=== PATIENT | male | born 1990 | race Caucasian/White ===

== ENCOUNTER 2020-03-31 | Outpatient (REF) | payer OTHER, SELFPAY | END 2020-03-31 00:01 | disposition home or self-care (01) | LOC: HO.WFDLNP | PROVIDERS: Visit Provider Hospitalist | DX: Z20.822 Contact with and (suspected) exposure to COVID-19 (principal) | CPT/HCPCS: U0003 ==

== ENCOUNTER 2020-04-01 17:43 | Emergency (ER) | payer OTHER, SELFPAY ==
--- NOTE | 2020-04-01 18:28 | ED.GENADULT ---
HPI - General Adult General Chief complaint: General Medical Stated complaint: COVID SYMPTOMS Time Seen by Provider: 04/01/20 18:27 Source: patient Mode of arrival: ambulatory Limitations: no limitations History of Present Illness HPI narrative: 29 y/o male with recent COVID diagnosis presents to the ED with anxiety. He was seen at a walk in clinic yesterday with headache and concern for COVID. His VS and physical examination were normal per documentation. A COVID PCR test was sent and patient was counseled. He was also tested the day prior and that came back positive for COVID. He reports today he had an episode of anxiety with increased respirations, tingling in his hands, chest discomfort and feeling panicked. Upon arrival to the ER all symptoms have resolved. MD complaint: anxiety Onset (ago): hour(s) (3) Severity: moderate Pain Consistency: now resolved Relieving factors: rest Exacerbating factors: other (stress, thinking about COVID) Associated symptoms: fever/chills and headaches Treatments prior to arrival: none Related Data Previous Rx's Medication Instructions Recorded hydroxyzine HCl 25 mg PO Q6H PRN #10 tab 04/01/20 Allergies Allergy/AdvReac Type Severity Reaction Status Date / Time No Known Allergies Allergy Verified 03/31/20 13:17 Review of Systems Review of Systems: Constitutional: No Fever, No Chills ENT/Mouth: + sore throat, No Rhinorrhea Cardiovascular: No Chest Pain, No SOB, No Orthopnea, No Edema Respiratory: + Cough, No Sputum Gastrointestinal: No Nausea, No Vomiting, No Diarrhea, No abdominal Pain Musculoskeletal: No joint pain, + Myalgias Skin: No Skin Lesions, No rash Neuro: No Weakness, No Numbness, No Dizziness, + Headache Psych:+ Anxiety/Panic, No Depression PMFSH Past Medical History Attestation statement: The following information was validated with the patient. Social History Social History Advance Directives: No Advance Directives Information Provided: No Physical Exam Vital Signs: Vital Signs: Last Vital Signs Temp 98.8 F 04/01/20 18:43 Pulse 105 H 04/01/20 18:43 Resp 18 04/01/20 18:43 BP 154/91 H 04/01/20 18:43 Pulse Ox 99 04/01/20 18:43 Body Mass Index 39.1 Appearance: Alert. Oriented X3. No acute distress. Eyes: Pupils equal, round and reactive to light. ENT: Pharynx normal. Neck: Normal inspection. Neck supple. CVS: Normal heart rate and rhythm. Pulses normal. Respiratory: No respiratory distress. Breath sounds normal. Abdomen: Soft and nontender. +BS x4 Skin: Skin warm and dry. Normal skin color. Normal skin turgor. No rashes. Extremities: No lower extremity edema. Negative Josefina's sign Neuro: Oriented X 3. No motor deficit. No sensory deficit. Course Course Course Narrative: 29 y/o male with COVID presenting s/p anxiety attack. Symptoms improved. He is concerned it is going to happen again. He was counseled on the diagnosis and management of COVID-19 as well as complications and warning signs to prompt ER evaluation. Agreed to start low dose atarax as needed for anxiety and patient agrees to follow up with his PCP for anxiety. He appears well, mild tachycardia on triage noted which has resolved upon my examination, likely anxiety related. Stable for discharge. Critical Care Time Critical Care Time Critical Care Time: No Discharge Plan Discharge Clinical Impression: COVID-19, Anxiety reaction Patient Disposition: Home, Self-Care Instructions: Anxiety (ED), COVID-19 (Coronavirus Disease 2019) (ED) Additional Instructions: Your exam and oxygen levels were normal. Rest. Drink plenty of fluids. Take over the counter cold/flu medications as needed for your symptoms. Take Tylenol and/or Motrin as needed for fevers and body aches. Follow up with your doctor this week. If you shortness of breath worsens , if you develop difficulty breathing or any other concerning symptom come back to the ER for further evaluation. CDC Guidelines for home isolation: - Stay away from others - WEAR A MASK if you are sick AND STAY HOME - Cover your mouth and nose with a tissue when you cough or sneeze. Dispose of tissues in a lined trash can and wash your hands immediately with soap and water for at least 20 seconds. If soap and water are not available, clean hands with alcohol-based hand subsurface augmentee operator that contains at least 60% alcohol. - Clean your hands often with soap and water for at least 20 seconds - Avoid touching your eyes, nose and mouth with unwashed hands - Do not share dishes, drinking glasses, cups, eating utensils, towels, or bedding with other people in your home. After using these items, wash them thoroughly with soap and water or put in the restaurant service manager. - Clean high-touch surfaces in your isolation area ( sick room and bathroom) every day; let a caregiver clean and disinfect high-touch surfaces in other areas of the home. Clean the area or item with soap and water or another detergent if it is dirty. Then, use a household disinfectant. - Limit contact with pets and animals: If you must care for a pet, wash your hands before and after interacting with them) Prescriptions: New hydroxyzine HCl 25 mg tablet 25 mg PO Q6H PRN (Reason: anxiety) Qty: 10 RF: 0 Interventions: ED Discharge Assessment Last Done: 04/01/20 19:27 Discharge Date/Time: 04/01/20 19:27
[2020-04-01 18:43] VITALS: BP 154/91; PULSE 105; RESP 18; TEMP 37.1; O2SAT 99; BMI 39.1
== END 2020-04-01 19:27 | disposition home or self-care (01) ==
PROVIDERS: Emergency Provider Internal Medicine
DX: U07.1 COVID-19 (principal); F41.9 Anxiety disorder, unspecified
CPT/HCPCS: 99283

== ENCOUNTER 2020-05-19 09:19 | Outpatient (REF) | payer OTHER, SELFPAY ==
[2020-05-19 11:50] LABS: Alanine Aminotransferase 29 U/L (0-40); Albumin Level 4.4 g/dL (3.5-5.0); Alkaline Phosphatase 104 U/L (39-117); Anion Gap 13 (12-20); Aspartate Amino Transferase 26 U/L (5-37); Bilirubin Total 0.9 mg/dL (0.0-1.0); Blood Urea Nitrogen 10 mg/dL (9-16); Calcium 9.3 mg/dL (8.4-10.2); Carbon Dioxide 27 mmol/L (22-29); Chloride 105 mmol/L (96-108); Cholesterol 147 mg/dL; Estimated Glomerular Filt Rate > 60; Glucose Fasting 99 mg/dL (60-99); HDL Cholesterol 45 mg/dL; LDL Cholesterol Calculated 86 mg/dl; Potassium 4.6 mmol/L (3.3-5.1); Sodium 140 mmol/L (135-145); Total Protein 7.9 g/dL (6.5-8.0); Triglycerides 83 mg/dL
[2020-05-19 12:12] LABS: TSH reflex Free T4 1.95 uIU/mL (0.32-4.0)
== END 2020-05-19 09:20 | disposition home or self-care (01) ==
LOC: HO.WFDLDS 09:19
PROVIDERS: Visit Provider Family Medicine
DX: Z00.00 Encounter for general adult medical examination without abnormal findings (principal)
CPT/HCPCS: 36415; 80053; 80061; 84443

== ENCOUNTER 2020-07-14 09:45 | Outpatient (REF) | payer OTHER, SELFPAY ==
--- NOTE | ~2020-07-14 | XR_ITS ---
EXAMINATION: XR CHEST CLINICAL INFORMATION: Z00.00 - Encounter for general adult medical examination COMPARISON: None TECHNIQUE: 2 views of the chest were obtained. FINDINGS: The lungs are clear. There is no hyperinflation, airspace consolidation, or effusion. The heart is normal in size. The vascularity is normal. The hilar and mediastinal contours and bony structures are unremarkable. XR/XR chest 2V IMPRESSION: Normal study.
== END 2020-07-14 09:46 | disposition home or self-care (01) ==
LOC: HO.XRAY 09:45
PROVIDERS: PCP Family Medicine; Visit Provider Family Medicine
DX: Z00.00 Encounter for general adult medical examination without abnormal findings (principal)
CPT/HCPCS: 71046

== ENCOUNTER → 2020-09-15 14:00 | Outpatient (REF) | payer OTHER, SELFPAY ==
--- NOTE | 2020-09-15 14:04 | ECG_ITS ---
Hook-up date: 2020-09-15 14:17:00 Duration: 25:02:00 Test Indications: PALPITATIONS Medications: [id number] QRS complexes * Ventricular ectopics which represent % of total QRS comp. * Supraventricular ectopics which represent % of total QRS comp. * Paced QRS complexs which represent % of total QRS comp. VENTRICULAR ECTOPY * Isolated * Bigeminal Cycles * Couplets * Runs * Beats in Runs * Beats LONGEST at * BPM at :: -- * Beats FASTEST at * BPM at :: -- SUPRAVENTRICULAR ECTOPY * Isolated * Couplets * Runs * Beats in Runs * Beats LONGEST at * BPM at :: -- * Beats FASTEST at * BPM at :: -- HEART RATES 45 MIN at 01:25:43 2020-09-16 78 AVG 145 MAX at 17:31:20 2020-09-15 LONGEST RR 1.6080 secs at 04:48:28 2020-09-16 S-T LEVELS Channel 1 - 128 mm at 14:17:00 2020-09-15 - 128 mm at 14:17:00 2020-09-15 Channel 2 - 128 mm at 14:17:00 2020-09-15 - 128 mm at 14:17:00 2020-09-15 Channel 3 - 128 mm at 03:33:61 -- - 128 mm at 03:33:61 Underlying rhythm is sinus; Average ventricular rate 78/min; range 45-145/min; No significant ectopy, tachy or bradyarrhythmias; Palpitations in patient diary associated with sinus rhythm. Referred By: Matthew Casiano Overread By: HILTON MITCHELL
== END ==
LOC: HO.CARD 14:00
PROVIDERS: PCP Family Medicine; Visit Provider Family Medicine
DX: R00.2 Palpitations (principal)
CPT/HCPCS: 93225; 93226

== ENCOUNTER 2020-09-24 16:39 | Outpatient (REF) | payer OTHER, SELFPAY ==
[2020-09-24 17:47] LABS: MANUAL DIFF FLAG NO
[2020-09-24 17:50] LABS: Basophils Percent Auto 0.4 % (0-2); Eosinophils Percent Auto 0.2 % (0-4); Hematocrit 44.4 % (42-52); Hemoglobin 15.5 g/dl (14.0-18.0); Imm Gran Abs Auto 0.02 X10*3/uL (0.00-0.03); Imm Gran Pct Auto 0.2 % (0.0-0.4); Lymphocytes Absolute Auto 1.5 X10*3/uL (1.2-4.9); Lymphocytes Percent Auto 17.3 % (20-40); Mean Corpuscular HGB Conc 34.9 g/dl (31.0-36.0); Mean Corpuscular Hemoglobin 29.7 pg (27.0-33.0); Mean Corpuscular Volume 85.1 fL (80-98); Mean Platelet Volume 10.2 fL (9.4-12.4); Monocytes Absolute Auto 0.8 X10*3/uL (0.1-1.2); Monocytes Percent Auto 9.6 % (2-11); Neutrophils Absolute Auto 6.2 X10*3/uL (2.0-8.3); Neutrophils Percent Auto 72.3 % (45-73); Platelet Count 325 X10*3/uL (160-400); Red Blood Count 5.22 X10*6/uL (4.60-5.80); Red Cell Distribution Width 13.2 % (11.0-16.0); White Blood Count 8.6 X10*3/uL (4.8-10.8)
[2020-09-24 18:25] LABS: Alanine Aminotransferase 23 U/L (0-40); Albumin Level 4.5 g/dL (3.5-5.0); Alkaline Phosphatase 113 U/L (39-117); Anion Gap 15 (12-20); Aspartate Amino Transferase 24 U/L (5-37); Blood Urea Nitrogen 9 mg/dL (9-16); Calcium 9.5 mg/dL (8.4-10.2); Carbon Dioxide 22 mmol/L (22-29); Chloride 106 mmol/L (96-108); Estimated Glomerular Filt Rate > 60; Glucose Random 89 mg/dL (60-115); Potassium 4.1 mmol/L (3.3-5.1); Sodium 139 mmol/L (135-145); Total Protein 8.1 g/dL (6.5-8.0)
[2020-09-24 18:46] LABS: Thyroid Stimulating Hormone 0.79 uIU/mL (0.32-4.0)
[2020-09-27 08:43] LABS: Folate 17.2 ng/mL (> or = 4.0); Vitamin B12 435 pg/mL (200-900)
== END 2020-09-24 16:40 | disposition home or self-care (01) ==
LOC: HO.LAB 16:39
PROVIDERS: PCP Family Medicine; Visit Provider Family Medicine
DX: Z00.00 Encounter for general adult medical examination without abnormal findings (principal); F41.9 Anxiety disorder, unspecified; E53.8 Deficiency of other specified B group vitamins; R20.2 Paresthesia of skin; E03.9 Hypothyroidism, unspecified
CPT/HCPCS: 36415; 80053; 82607; 82746; 84443; 85025

== ENCOUNTER 2020-10-06 09:04 | Outpatient (REF) | payer OTHER, SELFPAY | END 2020-10-06 09:05 | disposition home or self-care (01) | LOC: HO.WFDLDS 09:04 | PROVIDERS: PCP Family Medicine; Visit Provider Internal Medicine | DX: Z20.822 Contact with and (suspected) exposure to COVID-19 (principal) | CPT/HCPCS: C9803; U0003; U0005 ==

== ENCOUNTER 2020-10-07 07:58 | Emergency (ER) | payer OTHER, SELFPAY ==
[2020-10-07 07:59] VITALS: BP 132/77; PULSE 68; RESP 18; TEMP 36.7; O2SAT 99; BMI 33.5
--- NOTE | 2020-10-07 08:47 | ED.GENADULT ---
HPI - General Adult General Chief complaint: General Medical Stated complaint: abd pain Time Seen by Provider: 10/07/20 08:39 Source: patient Mode of arrival: ambulatory Limitations: no limitations History of Present Illness HPI narrative: Patient comes emergency room requesting his blood results that his PCP did on September 24. Also, patient is concerned that he felt a lump on the left side of his abdomen. Patient states that for several weeks he has been feeling tired, states that when he sitting or lying down and starts walking his heart rate goes to approximately 110, then if he sits down, his heart rate drops back to normal. During these episodes, patient denies chest pain, shortness of breath, no dizziness. Related Data Previous Rx's Medication Instructions Recorded hydroxyzine HCl 25 mg tablet 25 mg PO DAILY PRN #30 tab 06/09/20 omeprazole 40 mg capsule,delayed 40 mg PO DAILY 30 Days #30 cap 09/22/20 release Allergies Allergy/AdvReac Type Severity Reaction Status Date / Time No Known Allergies Allergy Verified 09/24/20 15:26 Review of Systems Review of Systems: Constitutional : No Weight loss, No Fever, No Chills, No Night Sweats, No Fatigue, No Malaise ENT/Mouth : No Hearing loss, No Ear Pain, No Nasal Congestion, No Sinus Pain, No Hoarseness, No sore throat, No Rhinorrhea, No Swallowing Difficulty Eyes: No Eye Pain, No Swelling, No Redness, No Foreign Body, No Discharge, No Vision Changes Cardiovascular : No Chest Pain, No SOB, No Dyspnea on Exertion, No Orthopnea, No Edema, palpitations with sitting up and standing Respiratory : No Cough, No Sputum, No Wheezing, No Smoke Exposure, No Dyspnea Gastrointestinal : No Nausea, No Vomiting, No Diarrhea, No Constipation, No abdominal Pain, No Hematochezia, No Melena Genitourinary : no irregular bleeding, No Dysuria, No Urinary Frequency, No Hematuria, No Urinary Incontinence, No Urgency, No Flank Pain, No Urinary Flow Changes, No Hesitancy Musculoskeletal : No joint pain, No Myalgias, No Joint Swelling Skin : No Skin Lesions, No rash Neuro : No Weakness, No Numbness, No Paresthesias, No Loss of Consciousness, No Dizziness, No Headache Psych : No Anxiety/Panic, No Depression, No SI/HI/AH/VH, No Social Issues, Heme/Lymph: No Bruising, No Bleeding,No Lymphadenopathy Endocrine : No Polyuria, No Polydipsia, No Temperature Intolerance [facility] Past Medical History Medical History Anxiety Surgical History No significant past surgical history Family History Family History Mother HTN (hypertension) Father No problems noted. Social History Social History Housing: Apartment Alcohol intake: current Alcohol intake frequency: a few times a week Patient Tobacco Use Status: Never used Tobacco Advance Directives: No Advance Directives Information Provided: No Current occupational status: employed Physical Exam Vital Signs: Vital Signs: Last Vital Signs Temp 98.0 F 10/07/20 07:59 Pulse 68 10/07/20 07:59 Resp 18 10/07/20 07:59 BP 132/77 10/07/20 07:59 Pulse Ox 99 10/07/20 07:59 Body Mass Index 33.5 Appearance: Alert. Oriented X3. No acute distress. Eyes: Pupils equal, round and reactive to light. ENT: Pharynx normal. Neck: Normal inspection. Neck supple. No lymph nodes noted. No crepitus CVS: Normal heart rate and rhythm. Pulses normal. Normal S1 and S2 Respiratory: No respiratory distress. Breath sounds normal. No Wheezing. No rales Abdomen: Soft and nontender. No rigidity. No distention. good BS x4 Skin: Skin warm and dry. Normal skin color. Normal skin turgor. Extremities: No lower extremity edema. No Lacerations. No Rash Neuro: Oriented X 3. No motor deficit. No sensory deficit. Moving all extermities. No slurred speech. Course Course Course Narrative: At this time, patient is asymptomatic. I discussed with the patient that the heart rate increased that he notices when he stands up and sits are normal. Patient states that he does not feel any palpitations, he is only aware of it because he wears a heart monitor. I discussed the labs from September 24 with the patient, his TSH was normal, his other labs unremarkable. Orthostatic vitals were negative Blood work was offered to the patient, states that he is content with the results from September 24, declined further blood work. I also discussed the physical exam with the patient, the lumps that the patient palpated in his abdomen are ribs. Patient was tested for COVID yesterday, the results are pending. Patient declined to be retested Discharge Plan Discharge Clinical Impression: Feeling tired Patient Disposition: Home, Self-Care Instructions: Fatigue (ED) Additional Instructions: Please follow-up with your primary care physician tomorrow. If you have any worsening or new symptoms, please return to the emergency room or call 911 Prescriptions: No Action hydroxyzine HCl 25 mg tablet 25 mg PO DAILY PRN (Reason: for anxiety) Qty: 30 RF: 1 omeprazole 40 mg capsule,delayed release(DR/EC) 40 mg PO DAILY 30 Days Qty: 30 RF: 0
== END 2020-10-07 09:05 | disposition home or self-care (01) ==
PROVIDERS: Emergency Provider Emergency Medicine; PCP Family Medicine
DX: R53.83 Other fatigue (principal)
CPT/HCPCS: 99282

== ENCOUNTER 2020-11-10 13:44 | Outpatient (REF) | payer OTHER, SELFPAY | END 2020-11-10 13:45 | disposition home or self-care (01) | LOC: HO.LNP 13:44 | PROVIDERS: Visit Provider Family Medicine | DX: Z20.822 Contact with and (suspected) exposure to COVID-19 (principal) | CPT/HCPCS: U0003; U0005 ==

== ENCOUNTER → 2020-11-24 10:04 | Outpatient (BNVA) | payer OTHER, SELFPAY | PROVIDERS: PCP Family Medicine; Visit Provider Dietitian, Registered | DX: E66.9 Obesity, unspecified (principal); Z68.30 Body mass index [BMI] 30.0-30.9, adult | CPT/HCPCS: 97802 ==

== ENCOUNTER → 2021-02-02 10:33 | Outpatient (BNVA) | payer OTHER, SELFPAY | PROVIDERS: PCP Family Medicine; Visit Provider Dietitian, Registered | DX: E66.9 Obesity, unspecified (principal) | CPT/HCPCS: 97803 ==

== ENCOUNTER → 2021-04-05 13:54 | Outpatient (BNVA) | payer OTHER, SELFPAY | PROVIDERS: PCP Family Medicine; Referring Provider Family Medicine; Visit Provider Nurse Practitioner Family ==

== ENCOUNTER → 2021-05-04 12:59 | Outpatient (REF) | payer OTHER, SELFPAY | LOC: HO.SL 12:59 | PROVIDERS: Visit Provider Nurse Practitioner Family | DX: G47.19 Other hypersomnia (principal); G47.9 Sleep disorder, unspecified; R06.83 Snoring | CPT/HCPCS: 95806 ==

== ENCOUNTER 2021-06-08 11:40 | Outpatient (REF) | payer OTHER, SELFPAY ==
[2021-06-08 14:17] LABS: MANUAL DIFF FLAG NO
[2021-06-08 14:19] LABS: Basophils Percent Auto 0.5 % (0-2); Eosinophils Absolute Auto 0.1 X10*3/uL (0.0-0.4); Eosinophils Percent Auto 1.2 % (0-4); Hematocrit 44.9 % (42.0-52.0); Hemoglobin 15.2 g/dl (14.0-18.0); Imm Gran Abs Auto 0.03 X10*3/uL (0.00-0.03); Imm Gran Pct Auto 0.5 % (0.0-0.4); Lymphocytes Absolute Auto 1.9 X10*3/uL (1.2-4.9); Lymphocytes Percent Auto 30.9 % (20-40); Mean Corpuscular HGB Conc 33.9 g/dl (31.0-36.0); Mean Corpuscular Hemoglobin 29.6 pg (27.0-33.0); Mean Corpuscular Volume 87.5 fL (80.0-98.0); Mean Platelet Volume 9.6 fL (9.4-12.4); Monocytes Absolute Auto 0.6 X10*3/uL (0.1-1.2); Monocytes Percent Auto 10.4 % (2-11); Neutrophils Absolute Auto 3.4 x10*3/uL (2.0-8.3); Neutrophils Percent Auto 56.5 % (45-73); Platelet Count 360 X10*3/uL (160-400); Red Blood Count 5.13 X10*6/uL (4.60-5.80); Red Cell Distribution Width 13.4 % (11.0-16.0)
== END 2021-06-08 11:41 | disposition home or self-care (01) ==
LOC: HO.WFDLDS 11:40
PROVIDERS: Visit Provider Family Medicine
DX: Z00.00 Encounter for general adult medical examination without abnormal findings (principal)
CPT/HCPCS: 36415; 85025

== ENCOUNTER 2021-06-09 08:27 | Outpatient (REF) | payer OTHER, SELFPAY ==
[2021-06-09 13:57] LABS: Leukocytes Stool Qualitative NEGATIVE (NEGATIVE)
== END 2021-06-09 08:28 | disposition home or self-care (01) ==
LOC: HO.WFDLNP 08:27
PROVIDERS: Visit Provider Family Medicine
DX: R10.9 Unspecified abdominal pain (principal); K92.1 Melena
CPT/HCPCS: 87045; 87046; 89055

== ENCOUNTER → 2021-06-28 08:32 | Outpatient (BNVA) | payer OTHER, SELFPAY | PROVIDERS: PCP Family Medicine; Referring Provider Family Medicine; Visit Provider Physician Assistant | DX: Z13.89 Encounter for screening for other disorder (principal) ==

== ENCOUNTER → 2021-07-12 08:22 | Outpatient (BNVA) | payer OTHER, SELFPAY | PROVIDERS: PCP Family Medicine; Visit Provider Nurse Practitioner Family | DX: Z13.89 Encounter for screening for other disorder (principal) ==

== ENCOUNTER 2021-07-27 13:56 | Outpatient (REF) | payer OTHER, SELFPAY ==
--- NOTE | ~2021-07-27 | US_ITS ---
EXAMINATION: US SOFT TISSUE NECK CLINICAL INFORMATION: Localized swelling, mass and lump, left neck. COMPARISON: None TECHNIQUE: Ultrasound of the neck soft tissues is performed with high- frequency castrejon-scale imaging and color Doppler. FINDINGS: In the palpable area as indicated by patient, within zone VB, there is a 1.1 x 0.4 x 1.1 cm normal-appearing lymph node without cortical thickening or lobulation. Multiple other small lymph nodes were evident in zone III. No suspicious cystic or solid mass appreciated. US/US soft tiss head and/or neck IMPRESSION: Region of palpable abnormality about the left neck corresponds to a normal-appearing lymph node within segment VB.
== END 2021-07-27 13:57 | disposition home or self-care (01) ==
LOC: HO.HMGCX 13:56
PROVIDERS: Visit Provider Family Medicine
DX: R22.1 Localized swelling, mass and lump, neck (principal)
CPT/HCPCS: 76536

== ENCOUNTER 2021-08-24 08:38 | Outpatient (REF) | payer OTHER, SELFPAY ==
--- NOTE | ~2021-08-24 | XR_ITS ---
EXAMINATION: XR ABDOMEN KUB CLINICAL INDICATION: Abdominal pain. COMPARISON: None TECHNIQUE: AP view of the abdomen. FINDINGS: The bowel gas pattern is normal with no evidence of ileus or obstruction. No unusual soft tissue calcifications are noted. The bones are unremarkable. XR/XR KUB IMPRESSION: Unremarkable examination.
[2021-08-24 11:42] LABS: Alanine Aminotransferase 36 U/L (0-40); Albumin Level 4.4 g/dL (3.5-5.0); Alkaline Phosphatase 104 U/L (39-117); Anion Gap 15 (12-20); Aspartate Amino Transferase 28 U/L (5-37); Bilirubin Total 0.6 mg/dL (0.0-1.0); Blood Urea Nitrogen 12 mg/dL (9-16); Calcium 9.6 mg/dL (8.4-10.2); Carbon Dioxide 24 mmol/L (22-29); Chloride 106 mmol/L (96-108); Cholesterol 176 mg/dL; Estimated Glomerular Filt Rate > 60; Glucose Fasting 88 mg/dL (60-99); HDL Cholesterol 58 mg/dL; LDL Cholesterol Calculated 108 mg/dl; Potassium 4.5 mmol/L (3.3-5.1); Sodium 140 mmol/L (135-145); Total Protein 8.1 g/dL (6.5-8.0); Triglycerides 50 mg/dL
[2021-08-24 12:09] LABS: TSH reflex Free T4 1.93 uIU/mL (0.32-4.0)
== END 2021-08-24 08:39 | disposition home or self-care (01) ==
LOC: HO.LAB 08:38
PROVIDERS: PCP Family Medicine; Visit Provider Family Medicine
DX: Z00.00 Encounter for general adult medical examination without abnormal findings (principal); R10.9 Unspecified abdominal pain
CPT/HCPCS: 36415; 74018; 80053; 80061; 84443

== ENCOUNTER 2022-05-31 08:21 | Day surgery (SDC) | payer OTHER, SELFPAY ==
[2022-05-26 14:13] VITALS: BMI 36.6
[2022-05-31 08:41] VITALS: BMI 36.0
[2022-05-31 08:47] VITALS: BP 143/85; PULSE 113; RESP 16; TEMP 36.8; O2SAT 98
[2022-05-31] MEDS: Lactated Ringers 1,000 ML 80 ML IVCONT (08:53)
--- NOTE | 2022-05-31 09:05 | HO.ANESPROP2 ---
HPI - Anesthesia Eval Consult details Narrative: 31 yr old for colonoscopy due to abd pain PMFSH Active Problems Active Problems: All Active Problems (Updated 05/26/22 @ 14:12 by Brittney Rivera RN) Encounter for screening laboratory testing for COVID-19 virus in asymptomatic patient (Acute) COVID-19 (Acute) Anxiety (Acute) Laboratory examination ordered as part of a routine general medical examination (Acute) COVID-19 virus infection (Acute) Shortness of breath (Acute) Annual physical exam (Acute) Obese (Acute) Fatigue (Acute) Palpitations (Acute) Atypical chest pain (Acute) GERD (gastroesophageal reflux disease) (Acute) Paresthesias (Acute) Viral illness (Acute) Fatigue (Acute) Mild dehydration (Acute) Exposure to severe acute respiratory syndrome coronavirus 2 (SARS-CoV-2) (Acute) Throat irritation (Acute) Cervicalgia (Acute) Rib pain (Acute) Snoring (Acute) Back pain (Acute) Apnea (Acute) Sleep disorder, unspecified (Acute) Excessive daytime sleepiness (Acute) Abnormal movement (Acute) Abdominal pain (Acute) Blood in stool (Acute) IBS (irritable colon syndrome) (Acute) Mass of left side of neck (Acute) Change in stool caliber (Acute) Cancer phobia (Acute) Past Medical History Medical History (Updated 05/26/22 @ 14:12 by Brittney Rivera RN) Anxiety GERD (gastroesophageal reflux disease) History of COVID-19 IBS (irritable bowel syndrome) Sleep disorder, unspecified Family History Family History Mother HTN (hypertension) Father No problems noted. Family history of problems with anesthesia: No Surgical History Surgical History (Updated 05/31/22 @ 08:40 by Myriam Ward) H/O skin graft History of Problems with Anesthesia: No Social History Social History Housing: Apartment Alcohol intake: current Alcohol intake frequency: a few times a month Patient Tobacco Use Status: Never used Tobacco e-Cigarette/Vaping Use: Never Used Second Hand Smoke Exposure: No Use of substances other than those prescribed or required for medical reasons: No Are you DNR?: No Advance Directives: No Advance Directives Information Provided: Yes service: No Current occupational status: employed 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 Cognitive needs: No Hearing needs: No Vision needs: Yes (glasses) Meds Allergies Allergy/AdvReac Type Severity Reaction Status Date / Time No Known Allergies Allergy Verified 05/31/22 08:40 Active Medications: Current Medications Lactated Ringer's (Lr) 1,000 mls @ 80 mls/hr IVCONT .[id number] SARAH Last Admin: 05/31/22 08:53 Dose: 80 mls/hr Exam Exam Date and Time: May 31, 2022 0905 Height,Weight and Vital Signs: Height 5 ft 9 in Weight 110.677 kg Last Vital Signs Temp 98.3 F 05/31/22 08:47 Pulse 113 H 05/31/22 08:47 Resp 16 05/31/22 08:47 BP 143/85 H 05/31/22 08:47 Pulse Ox 98 05/31/22 08:47 O2 Del Method 05/31/22 08:47 Airway Mallampati Class: II TM Dist: >3cm Neck ROM: Full Heart: rrr, tachy due to anxiety Lungs: clear Assessment and Plan Assessment Anesthesia Assessment: Anesthesia Plan Discussed and Chart Reviewed Final Anesthetic Review Family History of Problems with Anesthesia: No History of Problems with Anesthesia: No NPO: Yes Final Preanesthetic Review: No Changes in Pt Med Stat, Meds/Allgs Chart Reviewed, Consent Obtained/Reviewed and Anes Risks/Benef Reviewed Patient Risk: Low Procedure Risk: Low Anesthetic Plan Anesthetic Plan: MAC: Disposition: Standard PACU
--- NOTE | 2022-05-31 09:13 | MHC.SHP ---
Pre-Procedural Eval Section A Date of Service: 05/31/22 Section B Chief Complaint: altered bowel habits Relevant Family History (Specify if Yes): No Relevant Social History: None Present Medications: see Short Stay Collaborative assessment Medical History: No relevant PMH History of Previous Operations: No relevant previous surgery Allergies: Allergies Allergy/AdvReac Type Severity Reaction Status Date / Time No Known Allergies Allergy Verified 05/31/22 08:40 Review of Systems Sugical H&P ROS: Negative: Constitution, Cardiovascular, Respiratory, Neurological, Psychiatric, Hem-Onc, Allergic/Immunologic, Gastrointestinal, Genitourinary, Musculoskeletal, Integumentary, Endocrine and Eyes/Ears/Nose/Throat Exam Surgical H&P Exam: Normal: HEENT, Normal: Heart, Normal: Lungs, Normal: Extremities, Normal: Abdomen, Normal: Skin and Normal: Neurological Plan Diagnosis/Plan: Unchanged I have reviewed the history and physical and performed a pertinent physical examination on my patient. No changes have occurred unless specified. Time Spent With Patient Time: Total time managing care of this patient today ____ minutes.
--- NOTE | 2022-05-31 09:28 | PC.NURSE ---
Patient consumed an 8oz banana milkshake yesterday morning at 0800. Dr. Mendoza made aware.
--- NOTE | 2022-05-31 09:51 | W.PM.OPN ---
Operative Note Operative Note Date of Service: 05/31/22 Narrative: . Operative Information Procedure Description: Colonoscopy Indication: altered bowel habit Anesthesia: MAC COLONOSCOPY Instrument: Olympus variable stiffness pediatric scope 190L Colonoscopy Monitoring: Vital signs and clinical assessment, continuous EKG monitoring, Pulse oximetry, Carbon Dioxide monitoring and blood pressure monitoring were done throughout the procedure. Colon withdrawal time was 10 minutes. Procedure: The patient was placed in the left lateral decubitis position and pre-procedure medications were administered. After a digital rectal examination of the ano-rectum, the video colonoscope was inserted into the rectum and advanced through the colon to the cecum/TI. The colonoscope was slowly withdrawn in a retrograde panoramic fashion and the colon mucosa was carefully examined including a retroflexed view of the rectum. Findings and interventions are described below. Procedure Difficulty: easy Findings: Terminal Ileum-normal Cecum:normal Ascending Colon: normal Transverse Colon -normal Descending Colon:normal Sigmoid Colon: normal Rectum: Retroflexion with small, slightly inflammed internal hemorrhoids, grade I Anorectum - normal Colon preparation: [place] Bowel Preparation Scale Right colon; 3 Transverse colon: 3 Left colon; 3 (0 = Unprepared colon segment with mucosa not seen due to solid stool that cannot be cleared. 1 = Portion of mucosa of the colon segment seen, but other areas of the colon segment not well seen due to staining, residual stool and/or opaque liquid. 2 = Minor amount of residual staining, small fragments of stool and/or opaque liquid, but mucosa of colon segment seen well. 3 = Entire mucosa of colon segment seen well with no residual staining, small fragments of stool or opaque liquid) Impression and Post Procedure Diagnosis: internal hemorrhoids Plan: High fiber diet leaflet Avoid straining at stool, epsom salts and sitz bath, anusol supps or cream Repeat Colonoscopy aged 45 or earlier if clinically indicated Above findings were reviewed with the patient and relevant handouts were provided if indicated.
[2022-05-31 09:57] VITALS: BP 121/60; PULSE 105; RESP 20; TEMP 37; O2SAT 98
[2022-05-31 10:12] VITALS: BP 137/80; PULSE 104; RESP 18; TEMP 36.8; O2SAT 96
== END 2022-05-31 10:45 | disposition home or self-care (01) ==
PROVIDERS: PCP Family Medicine; Visit Provider Internal Medicine Gastroenterology
PROC: 0DJD8ZZ Inspection of Lower Intestinal Tract, Via Natural or Artificial Opening Endoscopic (ICD-10-PCS; CPT 45378; principal; 2022-05-31 10:00)
DX: R19.4 Change in bowel habit (principal); K64.0 First degree hemorrhoids; K58.9 Irritable bowel syndrome, unspecified; K21.9 Gastro-esophageal reflux disease without esophagitis; F40.298 Other specified phobia; G47.9 Sleep disorder, unspecified; Z86.16 Personal history of COVID-19
CPT/HCPCS: 45378

== ENCOUNTER → 2022-06-21 09:08 | Outpatient (BNVA) | payer OTHER, SELFPAY | PROVIDERS: PCP Family Medicine; Visit Provider Physician Assistant | DX: Z13.89 Encounter for screening for other disorder (principal) ==

== ENCOUNTER 2024-05-14 11:54 | Outpatient (AMB) | payer OTHER, SELFPAY ==
[2024-05-14 11:57] VITALS: BP 140/80; PULSE 97; TEMP 37.1; O2SAT 99
--- NOTE | 2024-05-14 11:57 | MHC.OFFWIV ---
Intake Vital Signs 05/14/24 11:57 Weight 257 lb BP 140/80 H Blood Pressure Location Rt brachial Position Sitting Pulse 97 Pulse Source Pulse Oximeter Temp 98.7 F Temp Source Oral Pulse Oximetry (%) 99 Oxygen Delivery Method Room Air Intake Visit Reasons: EP high BP, frequent urination, cold feet Intake Note: Patient here for frequent urination, feet always cold and irritation which started a couple of days ago. Patient Tobacco Use Status: Never used Tobacco Allergies No Known Allergies Allergy (Verified 05/14/24 12:02) Do you need a note to return to daycare/school/sports/work: No HPI HPI Comments History of Present Illness Details History of Present Illness - The patient is a 33-year-old male presenting with concerns about frequent urination, elevated blood pressure, and weird head sensations. - Describes a four-day history of a foggy sensation in the head with concurrent right eye twitching. - Blood pressure recordings at home indicated elevated levels with fluctuations, highest noted at 172/140 mmHg. - Reports increased urination two days ago, primarily post-water consumption; symptoms briefly resolved with electrolyte intake. - Active anxiety regarding potential dehydration, hydration intake typically low. - Occasional visual alteration events, specifically noted left-eye darkening episodes lasting seconds x 1 episode. - Normal fasting blood glucose readings acquired at home on device he purchased. - denies unintentional weight loss - Emotional distress with irritability and concentration difficulties coinciding with head sensation episodes. Also admits to difficulty relaxing when he gets home at the end of the day. He tells me he used to be able to play video games but he is not even interested in doing not right now. - Prior history of stress-induced symptoms managed successfully previously through medication; not currently on treatment. - Does not have a therapist but is open to one - Physical Exam General: Cooperative, healthy appearing, comfortable, no acute distress and well developed Orientation: Patient oriented x3 Limitations: No limitations Head: Normal to inspection Ears: Hearing grossly normal bilaterally Nose: Normal external nose present Face and sinus: Normal facial exam Eyes: Right eye twitching noted; transient darkening of vision in the left eye reported Neck: Normal visual inspection and Yes full ROM Respiratory: Normal respiratory effort and able to speak in complete sentences. Skin: No rashes or lesions noted; cold feet reported Neuro: Patient oriented x3 Extremities: Normal to inspection [facility] Medical History Anxiety GERD (gastroesophageal reflux disease) History of COVID-19 IBS (irritable bowel syndrome) Sleep disorder, unspecified Surgical History H/O skin graft Hx of colonoscopy Family History Mother HTN (hypertension) Father No problems noted. 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 Cognitive needs: No Hearing needs: No Vision needs: Yes (glasses) Review of Systems Const All systems reviewed & are unremarkable except as noted in HPI and below Physical Exam Vital Signs: Last Vital Signs Temp 98.7 F 05/14/24 11:57 Pulse 115 H 05/14/24 11:57 BP 140/80 H 05/14/24 11:57 Pulse Ox 97 05/14/24 11:57 Oxygen Delivery Method Room Air 05/14/24 11:57 Assessment & Plan Assessment & Plan (1) Anxiety about health: Code(s): R45.89 - Other symptoms and signs involving emotional state Plan: A tentative plan encompasses evaluating his understanding of stress as an anxiety-related factor, complementing his next scheduled consultations. Suggestions of therapist consultations, as outlined by patient insurance compatibilities, would provide interim support. (2) Elevated BP without diagnosis of hypertension: Code(s): R03.0 - Elevated blood-pressure reading, without diagnosis of hypertension Plan: The patient presents with symptoms indicative of anxiety and elevated blood pressure, which were consistent with past experiences and managed by self-reported lifestyle changes. Blood sugar levels were normal; however, procedural re-evaluation ensures accurate operation of the glucometer. High blood pressure measurements and associated symptoms align with anxiety and hydration inadequacies. Suggested lifestyle modifications, specifically increased fluid intake, reduce salt intake and support for stress management, potentially help alleviate symptoms. Elizabeth Price (CHW) sit with pt to give him resources for therapist and stress mgmt. Pt has appt with his PCP on 07/02, I told him to keep logging BP's twice daily (AM and PM) and bring to his appt. I messaged the chief procurement officer to see if he can be seen sooner but he can only come in on a Sunday. Continued monitoring and impending A1c tests manage potential diabetic concerns, reinforced by consistent urine analysis readings. Patient was informed and verbally consented to the use of an ambient scribe for clinic note documentation during this visit. Coding Level of Care Code Est Pt Level 4 (70705) Diagnoses Anxiety about health R45.89 Elevated BP without diagnosis of hypertension R03.0
--- OUTSIDE RECORDS SUMMARY | 2024-05-14 12:29 | XMS_ITS | Clinical Summary ---
Author Organization [facility] ity Address [address] [place] [address] Care Team Providers Care Test Puller Name Role Phone Unavailable Primary Care Provider Unavailabl e Social History Tobacco Use Types Packs/Day Years Used Date Smoking Tobacco: Never Assessed Sex and Gender Information Value Date Recorded Sex Assigned at Not on file Legal Sex Male 11:40 AM EDT Gender Identity Not on file Sexual Orientation Not on file Plan of Treatment Health Maintenance Due Date Last Done Comments DTaP,Tdap,and Td Vaccines (1 - Tdap) 06/08/2011 Hepatitis B Vaccines (1 of 3 - 19+ 3-dose series) 06/08/2011 COVID-19 Vaccine (2023-2 5 season) 2023 Influenza Vaccine (#1) 2023 Depression Screening 01/02/2024 HIV Screening 01/02/2024 Hepatitis C Screening 01/02/2024 Social Influencers of Health Screening 01/02/2024 HIB Vaccines Aged Out No longer eligi ble based on patient's age to complete this topic HPV Vaccines Aged Out No longer eligi ble based on patient's age to complete this topic Hepatitis A Vaccines Aged Out No long er eligible based on patient's age to complete this topic IPV Vaccines Aged Out No longer eligi ble based on patient's age to complete this topic MMR Vaccines Aged Out No longer eligi ble based on patient's age to complete this topic Meningococcal ACWY Vaccine Aged Out N o longer eligible based on patient's age to complete this topic Meningococcal B Vacine Aged Out No lo nger eligible based on patient's age to complete this topic Pneumococcal Vaccine: Pediat rics (0 to 5 Years) and At-Risk Patients (6 to 64 Years) Aged Out No longer eligible b ased on patient's age to complete this topic RSV Immunization Patients Un crispin 20 months Aged Out No longer eligible b ased on patient's age to complete this topic Varicella Vaccines Aged Out No longer eligible based on patient's age to complete this topic
--- OUTSIDE RECORDS SUMMARY | 2024-05-14 12:29 | XMS_ITS | Clinical Summary ---
Author Organization [facility] Address [address] [place] [address] Care Team Providers Care Specification Writer Name Role Phone Unavailable Primary Care Provider Unavailabl e Allergies No known active allergies Medications Medication Sig Dispensed Refills Start Date End Date Status ibuprofen (MOTRIN) 800 mg tablet Take 1 tablet (800 mg total) by mouth 3 times daily (every 8 hours). 90 tablet 06/09/2019 Active lidocaine (LIDODERM) 5 % patch Place 1 patch on the skin daily. Apply patch and leave on for 12 hours then remove. Patch may remain on skin for 12 hours per day. 30 patch 06/09/2019 Active methocarbamol (ROBAXIN) 500 MG tablet Take 2 tablets (1,000 mg total) by mouth 4 times daily (every 6 hours) as needed for muscle spasms. 20 tablet 06/09/2019 Active acetaminophen (TYLENOL) 500 MG tablet Take 1 tablet (500 mg total) by mouth 4 times daily (every 6 hours) as needed for mild pain (pain). 20 tablet 06/09/2019 Active Social History Tobacco Use Types Packs/Day Years Used Date Smoking Tobacco: Never Assessed Sex and Gender Information Value Date Recorded Sex Assigned at Not on file Gender Identity Not on file Sexual Orientation Not on file Last Filed Vital Signs Vital Sign Reading Time Taken Comments Blood Pressure 143/79 06/09/2019 8:12 PM EDT Pulse 101 06/09/2019 8:12 PM EDT Temperature 36.5 ??C (97.7 ??F) 06/09/2019 8:12 PM ED T Respiratory Rate 18 06/09/2019 8:12 PM EDT Oxygen Saturation 98% 06/09/2019 8:12 PM EDT Inhaled Oxygen Concentration - - Weight - - Height - - Body Mass Index - - Plan of Treatment Health Maintenance Due Date Last Done Comments Hepatitis C Virus Screening 1992 HIV Screening 2005 DTaP/Tdap/Td Vaccines (1 - Tdap) 06/08/2011 Hepatitis B Vaccines (1 of 3 - 19+ 3-dose series) 06/08/2011 Influenza Vaccine 10/25/2023 COVID-19 Vaccine (1 - 2023-2 5 season) 2023 HPV Vaccines Aged Out No longer eligi ble based on patient's age to complete this topic Pneumococcal Vaccine: Pediat aydee (0-5 Years) and At-Risk Patients (6 to 49 Years) Aged Out No longer eligible b ased on patient's age to complete this topic
--- OUTSIDE RECORDS SUMMARY | 2024-05-14 12:29 | XMS_ITS | Clinical Summary ---
Author Organization [facility] Address [address] [place] [address] Care Team Providers Care Data Quality Consultant Name Role Phone Emeli Yang SARA Primary Care Provider [phone] Source Comments PLEASE NOTE, if this patient is a minor, it may be UNLAWFUL to discuss sensitive information that is contained in these records (such as FAMILY PLANNING, MENTAL HEALTH or SUBSTANCE ABUSE) with the minor patient's parent or other person without the patient's specific authorization.[facility] Allergies No known active allergies Medications No known medications Active Problems Problem Noted Date Diagnosed Date 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 Was [place] [facility] [place]. TB spot was neg. No Rx recommended. Immunizations Name Administration Dates Next Due PPD 12/24/2013 Family History Relation Name Status Comments Brother 25 Alive Father 52 Alive Mother 48 Alive Sister 18 Alive Social History Tobacco Use Types Packs/Day Years Used Date Smoking Tobacco: Never Alcohol Use Standard Drinks/Week Comments No 0 (1 standard drink = 0.6 oz pur e alcohol) occassionl Sex and Gender Information Value Date Recorded Sex Assigned at Not on file Legal Sex Male 11:36 AM PDT Gender Identity Not on file Sexual Orientation Not on file Last Filed Vital Signs Vital Sign Reading Time Taken Comments Blood Pressure 128/68 06/19/2014 2:12 PM EDT Pulse 82 06/19/2014 2:12 PM EDT Temperature 36.4 ??C (97.5 ??F) 06/19/2014 2:12 PM ED T Respiratory Rate 16 06/19/2014 2:12 PM EDT Oxygen Saturation - - Inhaled Oxygen Concentration - - Weight 97.1 kg (214 lb) 06/19/2014 2:12 PM EDT Height 172.7 cm (5' 8 ) 06/19/2014 2:12 PM EDT Body Mass Index 32.54 06/19/2014 2:12 PM EDT Plan of Treatment Not on file Insurance [employer] SAF[employer]Y NET SAFETY NET DENTAL Care Teams Data Quality Consultant Relationship Specialty Start Date End Date Emeli Yang NP [address] [place] [address] PCP - General Internal Medicine 06/19/14
== END 2024-05-14 13:01 | disposition home or self-care (01) ==
PROVIDERS: PCP Family Medicine; Visit Provider Physician Assistant
DX: R45.89 Other symptoms and signs involving emotional state (principal); R03.0 Elevated blood-pressure reading, without diagnosis of hypertension; Z13.9 Encounter for screening, unspecified

== ENCOUNTER → 2024-05-14 11:54 | Outpatient (BNVA) | payer OTHER, SELFPAY | PROVIDERS: PCP Family Medicine | DX: R35.0 Frequency of micturition (principal); R45.89 Other symptoms and signs involving emotional state; R03.0 Elevated blood-pressure reading, without diagnosis of hypertension | CPT/HCPCS: 81003; 82948 ==

== ENCOUNTER 2024-07-02 11:40 | Outpatient (AMB) | payer OTHER, SELFPAY ==
--- NOTE | 2024-07-02 11:50 | A.OFFPC_ITS ---
Vital Signs 07/02/24 11:52 Height 5 ft 9 in Weight 251 lb 4 oz BMI 37.1 BP 130/70 Blood Pressure Location Rt brachial Position Sitting Respiration 16 Pulse 86 Pulse Source Pulse Oximeter Temp 99.5 F Temp Source Oral Pulse Oximetry (%) 96 Oxygen Delivery Method Room Air Intake Visit Reasons: Diabetic Intake Note: patient was scheduled for a physical Automotive Parts Interpreter Required: No Allergies No Known Allergies Allergy (Verified 07/02/24 11:54) Medication List - Last Reconciled 07/02/24 by Matthew Casiano MD No Known Home Meds Tobacco use date assessed: 08/31/21 Dental Screening Dental Screen Date: 07/02/24 Did you have a dental visit in the last 12 months?: Yes Did you have a dental problem in the last 6 months where you did not have access to dental care?: No Was dental information given to patient?: No HPI Diabetic HPI Details 34 y/o male presents today for a CPE wit h f/u labs. Pt is concerned about his blood sugars today. A1c toady 07/02/24 is [facility] Medical History Sleep disorder, unspecified IBS (irritable bowel syndrome) GERD (gastroesophageal reflux disease) History of COVID-19 Anxiety Surgical History Hx of colonoscopy H/O skin graft Family History Mother HTN (hypertension) Father No problems noted. 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 1. Little interest or pleasure in doing things: not at all 2. Feeling down, depressed, or hopeless: not at all 3. Trouble falling or staying asleep, or sleeping too much: not at all 4. Feeling tired or having little energy: several days 5. Poor appetite or overeating: not at all 6. Feeling bad about yourself - or that you are a failure or have let yourself or your family down: not at all 7. Trouble concentrating on things, such as reading the newspaper or watching television: several days 8. Moving or speaking so slowly that other people could have noticed. Or the opposite - being so fidgety or restless that you have been moving around a lot more than usual: not at all 9. Thoughts that you would be better off or of hurting yourself in some way: not at all Total score: 2 Depression Screening Interpretation: Negative Depression Screening Done: Yes 43291 - PHQ-9 Billing: Yes Source: Developed by Drs. Luis Laura, Lynette Jade, Jake Germain and colleagues, with an educational kirit from [employer]. Thrive Questionnaire Date Thrive assessed: 07/02/24 I am a: Patient What is your living situation today?: I have a steady place to live Within the past 12 months, did the food you bought not last and you didn't have the money to get more?: Never true Within the past 12 months, did you worry whether your food would run out before you got money to buy more?: Never true Do you have trouble paying for medicines?: I choose not to answer this question Do you have trouble getting transportation to medical appointments?: No Do you have trouble paying your heating and electricity bill?: I choose not to answer this question Do you have trouble taking care of your child, family member or friend?: No Do you have trouble with day-to-day activities such as bathing, preparing meals, shopping, managing finances, etc.?: No Are you currently unemployed and looking for a job?: No Are you interested in more education?: No Please select the resources that you would like help with: None Currently or been in a relationship where the following occur: No concerns reported THRIVE Score: 0 AUDIT C Alcohol Use Questionnaire (AUDIT-C) 1. How often do you have a drink containing alcohol?: Monthly or less 2. How many drinks containing alcohol do you have on a typical day when you are drinking?: 3 or 4 3. How often do you have six or more drinks on one occasion?: Never Total Score: 2 NATHEN-7 AMB Questionnaire NATHEN-7 Date NATHEN - 7 assessed: 07/02/24 Feeling nervous, anxious, or on edge: 2 = More than half the days Not being able to stop or control worryin = Several days Worrying too much about different things: 1 = Several days Trouble relaxin = Several days Being so restless that it is hard to sit still: 1 = Several days Becoming easily annoyed or irritable: 1 = Several days Feeling afraid as if something awful might happen: 1 = Several days Total NATHEN-7 score (0-4 normal; 5-9 mild; 10-14 moderate; 15-21 severe): 8 Source: Developed by Drs. Luis Laura, Lynette Jade, Jake Germain and colleagues, with an educational kirit from [employer]. NATHEN-7 Assessment Billing NATHEN-7 Assessment Tool: NATHEN-7 Assessment 15434 Review of Systems Const Denies chills, Denies fatigue, Denies fever(s), Denies headache(s) and Denies weakness Eyes Denies change in vision ENT Denies dizziness, Denies headache(s), Denies hearing loss, Denies nasal congestion, Denies sinus pain, Denies sinus pressure and Denies sore throat Card Denies chest pain, Denies lightheadedness, Denies dyspnea and Denies other (palpitations) Resp Denies cough, Denies dyspnea and Denies wheezing GI Denies abdominal pain, Denies melena, Denies hematochezia, Denies change in bowel habits, Denies dyspepsia and Denies nausea Denies hematuria and Denies dysuria Musc Denies abnormal gait, Denies myalgias, Denies arthralgias, Denies numbness and Denies tingling Skin/Breast Denies rash, Denies unusual bruising and Denies wounds Neuro Denies abnormal gait, Denies dizziness, Denies headache(s), Denies memory loss, Denies numbness, Denies Sensory deficit (Neuro), Denies tingling and Denies weakness Psych Denies anxiety, Denies depression and Denies memory loss Endo Denies cold intolerance, Denies fatigue, Denies heat intolerance, Denies polydipsia and Denies polyuria Chandler/Lymph Denies easy bleeding and Denies easy bruising Aller/Immun Denies wheezing Physical exam (Primary Care) Vital Signs: Last Vital Signs Temp 99.5 F 07/02/24 11:52 Pulse 86 07/02/24 11:52 Resp 16 07/02/24 11:52 BP 130/70 07/02/24 11:52 Pulse Ox 96 07/02/24 11:52 Oxygen Delivery Method Room Air 07/02/24 11:52 BMI result Body Mass Index 37.1 Tobacco/Smoking Status: Tobacco use Status Tobacco use date assessed 08/31/21 07/02/24 11:51 Patient Tobacco Use Status Never used Tobacco 07/02/24 11:51 e-Cigarette/Vaping Use Never Used 07/02/24 11:51 PHQ-9: PHQ-9 Score PHQ-9: Total score 2 07/02/24 11:57 Depression Screening Interpretation: Negative Thrive Assessment: Date of Thrive Assessment Date Thrive assessed 07/02/24 07/02/24 11:55 Currently or been in a relationship where the following occur: No concerns reported Const General: no acute distress, well developed, alert and awake Nutritional Appearance: well nourished and obese Orientation/consciousness: patient oriented x3 HENMT Head: Yes normocephalic and Yes atraumatic Ears: hearing grossly normal bilaterally and TM's normal bilaterally General nose exam: Normal external nose present and Normal nares present Mouth: Normal oral and palatal mucosa present and moist mucous membranes Teeth and gingiva: dentition normal Throat: Yes posterior oropharynx normal Eyes General: appearance normal, both eyes and all related structures Pupils: Equal, round and reactive pupils present and Pupil accommodation reflex normal EOM: EOMs intact bilaterally Neck Neck: Yes normal visual inspection, Yes no lymphadenopathy and Yes trachea midline Thyroid: Thyroid normal Carotids: no bruits Lymphatic: no lymphadenopathy noted Chest Chest palpation & inspection: normal inspection of the chest Resp Effort & Inspection: normal respiratory effort Auscultation: clear to auscultation bilaterally Cardio Rate: regular rate Rhythm: regular rhythm Heart sounds: S1 normal heart sound present, S2 normal heart sound present, no gallops, no murmurs and no rubs Bruits: no abdominal aortic bruits and no carotid bruits GI Palpation (GI): No Abdominal aortic bruit present, Soft to palpation, nontender, No hepatosplenomegaly present and No Rebound tenderness present Auscultation: normal bowel sounds General: Yes no CVA tenderness Back/Spine/Pelvis Back: no CVA tenderness Cervical Spine: cervical ROM normal and No Cervical spine tenderness Thoracic/Lumbar Spine: thoraco-lumbar ROM normal, No pain with thoraco-lumbar ROM, No thoracic spinal tenderness and No lumbar spinal tenderness Skin Lesions: no lesions Rashes: no rashes Trauma: no lacerations or abrasions Wounds: no wounds Nails: normal Neuro General: patient oriented x3 Cranial nerves: Yes Equal, round and reactive pupils present Cognition (Neuro): normal cognition Gait exam (Neuro): Normal gait present Motor exam (neuro): 5/5 motor strength present throughout Sensory Exam: No Sensory deficit (Neuro) Deep tendon reflexes (DTR's): Right patellar reflex intensity grade: 2+ and Left patellar reflex intensity grade: 2+ Extrem General: Yes normal to inspection and No edema Psych Appearance: grossly normal Affect: normal affect Attitude: cooperative Thought process: Normal thought process present Coding Level of Care Code Est Pt Level 3 (02554) Est Pt Prev Care 18-39y(59942) Diagnoses Adult general medical exam Z00.00 Anxiety F41.9 Constipation K59.00 Additional Codes NATHEN-7 Assessment Billing - NATHEN-7 Assessment Tool: NATHEN-7 Assessment 92140 ([id number]) PHQ-9 - 18174 - PHQ-9 Billing: Yes ([id number]) Assessment & Plan Assessment & Plan (1) Adult general medical exam: Code(s): Z00.00 - Encounter for general adult medical examination without abnormal findings Category: Medical Plan: 34-year-old?male?presents?for?complete?physical?exam Encouraged?healthy?diet?with?active?lifestyle?and?exercise (2) Anxiety: Code(s): F41.9 - Anxiety disorder, unspecified Category: Medical Plan: History?of?anxiety Fairly?stable?today He?notes?heart?rate?gets?fast?when?he?is?dehydrated. Encouraged?increase?water?intake (3) Constipation: Code(s): K59.00 - Constipation, unspecified Category: Medical Plan: As?above,?patient?notes?that?he?had?been?drinking?much?water Advised?him?to?work?at?about?72?oz?of?water?per?day Later?meals Orders: Orders Comprehensive [place]. Panel Fast Today Z00.00 - Encounter for general adult medical examination without abnormal findings Complete Blood Count Auto Diff Today Z00.00 - Encounter for general adult medical examination without abnormal findings Microalbumin, Random (w Creat) Today I10 - Essential (primary) hypertension Lipid Panel Today Z00.00 - Encounter for general adult medical examination without abnormal findings TSH reflex Free T4 Today Z00.00 - Encounter for general adult medical examination without abnormal findings UA CC w/rflx Micro + Cult Today Z00.00 - Encounter for general adult medical examination without abnormal findings
[2024-07-02 11:52] VITALS: BP 130/70; PULSE 86; RESP 16; TEMP 37.5; O2SAT 96; BMI 37.1
--- OUTSIDE RECORDS SUMMARY | 2024-07-02 13:48 | XMS_ITS | Clinical Summary ---
Author Organization [facility] Address [address] [place] [address] Care Team Providers Care General Merchandise Manager Name Role Phone Emeli Yang SARA Primary Care Provider [phone] Source Comments PLEASE NOTE, if this patient [...] (10/03/2015): PPD+(20mm) in 12/2013. Was seen at [facility]. TB spot was neg. No Rx recommended. Immunizations Immunization Administration Dates Next Due PPD 12/24/2013 Family [...] SAFETY NET SAFETY NET DENTAL Care Teams General Merchandise Manager Relationship Specialty Start Date End Date Emeli Yang NP [address] [place] [address] PCP - General Internal Medicine 06/19/14
--- OUTSIDE RECORDS SUMMARY | 2024-07-02 13:48 | XMS_ITS | Clinical Summary ---
Author Organization [facility] Address [address] [place] [address] Care Team Providers Care Delivery Route Driver Name Role Phone Unavailable Primary Care Provider [...]
--- OUTSIDE RECORDS SUMMARY | 2024-07-02 13:48 | XMS_ITS | Clinical Summary ---
Author Organization [facility] ity Address [address] [place] [address] Care Team Providers Care Landscape Supervisor Name Role Phone Unavailable Primary Care Provider [...] age to complete this topic Meningococcal B Vaccine Aged Out No l onger eligible based on patient's age to complete [...]
== END 2024-07-02 12:10 | disposition home or self-care (01) ==
LOC: HO.HMCFM 11:41
PROVIDERS: PCP Family Medicine; Visit Provider Family Medicine
DX: Z00.00 Encounter for general adult medical examination without abnormal findings (principal)

== ENCOUNTER → 2024-07-02 11:40 | Outpatient (BNVA) | payer OTHER, SELFPAY | PROVIDERS: PCP Family Medicine; Visit Provider Family Medicine | DX: Z00.00 Encounter for general adult medical examination without abnormal findings (principal); F41.9 Anxiety disorder, unspecified; K59.00 Constipation, unspecified; Z13.1 Encounter for screening for diabetes mellitus | CPT/HCPCS: 83036; 96127 ==

== ENCOUNTER 2024-07-02 12:32 | Outpatient (REF) | payer OTHER, SELFPAY ==
--- OUTSIDE RECORDS SUMMARY | 2024-07-02 14:30 | XMS_ITS | Clinical Summary ---
Author Organization [facility] ity Address [address] [place] [address] Care Team Providers Care Electric Deicer Assembler Name Role Phone Unavailable Primary Care Provider [...]
--- OUTSIDE RECORDS SUMMARY | 2024-07-02 14:30 | XMS_ITS | Clinical Summary ---
Author Organization [facility] Address [address] [place] [address] Care Team Providers Care Public Health Aides Teacher Name Role Phone Emeli Yang SARA Primary Care Provider [phone] Source Comments PLEASE NOTE, if this patient [...] (10/03/2015): PPD+(20mm) in 12/2013. Was seen at [facility] TB clinic. TB spot was neg. No [...] SAFETY NET SAFETY NET DENTAL Care Teams Public Health Aides Teacher Relationship Specialty Start Date End Date Emeli Yang NP [address] [place] [address] PCP - General Internal Medicine 06/19/14
--- OUTSIDE RECORDS SUMMARY | 2024-07-02 14:30 | XMS_ITS | Clinical Summary ---
Author Organization [facility] Address [address] [place] [address] Care Team Providers Care Regional Recruiter Name Role Phone Unavailable Primary Care Provider [...]
[2024-07-02 14:57] LABS: MANUAL DIFF FLAG NO
[2024-07-02 15:01] LABS: Basophils Percent Auto 0.3 % (0-2); Eosinophils Percent Auto 0.3 % (0-4); Hematocrit 45.1 % (42.0-52.0); Hemoglobin 15.6 g/dl (14.0-18.0); Imm Gran Abs Auto 0.01 X10*3/uL (0.00-0.03); Imm Gran Pct Auto 0.2 % (0.0-0.4); Lymphocytes Absolute Auto 1.6 X10*3/uL (1.2-4.9); Lymphocytes Percent Auto 26.9 % (20-40); Mean Corpuscular HGB Conc 34.6 g/dl (31.0-36.0); Mean Corpuscular Hemoglobin 29.3 pg (27.0-33.0); Mean Corpuscular Volume 84.8 fL (80.0-98.0); Mean Platelet Volume 9.4 fL (9.4-12.4); Monocytes Absolute Auto 0.6 X10*3/uL (0.1-1.2); Monocytes Percent Auto 10.4 % (2-11); Neutrophils Absolute Auto 3.8 x10*3/uL (2.0-8.3); Neutrophils Percent Auto 61.9 % (45-73); Platelet Count 358 X10*3/uL (160-400); Red Blood Count 5.32 X10*6/uL (4.60-5.80); Red Cell Distribution Width 14.2 % (11.0-16.0); White Blood Count 6.1 X10*3/uL (4.8-10.8)
[2024-07-02 15:05] LABS: Appearance Urine Clear; Color Urine Yellow; Glucose Urine UA Negative (Negative); Leukocyte Esterase Urine Negative (Negative); Nitrite Urine Negative (Negative); PH 8.5 (5.0-9.0); Urine Blood Negative (Negative); Urine Ketones Negative (Negative); Urine Protein Negative (Neg-Trace)
[2024-07-02 15:22] LABS: Alanine Aminotransferase 37 U/L (0-40); Albumin Level 4.3 g/dL (3.5-5.0); Alkaline Phosphatase 122 U/L (39-117); Anion Gap 9 (12-20); Aspartate Amino Transferase 33 U/L (5-37); Blood Urea Nitrogen 5 mg/dL (9-16); Calcium 9.3 mg/dL (8.4-10.2); Carbon Dioxide 26 mmol/L (22-29); Chloride 109 mmol/L (96-108); Cholesterol 137 mg/dL (<200); Estimated Glomerular Filt Rate > 60; Glucose Fasting 91 mg/dL (60-99); HDL Cholesterol 45 mg/dL (>40); LDL Cholesterol Calculated 72 mg/dL (<100); Sodium 140 mmol/L (135-145); Total Protein 7.9 g/dL (6.5-8.0); Triglycerides 100 mg/dL (<150)
[2024-07-02 15:37] LABS: TSH reflex Free T4 1.02 uIU/mL (0.32-4.0)
[2024-07-02 15:46] LABS: Creatinine Urine 180.23 mg/dL; Microalbum/Creatinine Ratio Ur 3.8 ug/mg cr (<30)
== END 2024-07-02 12:33 | disposition home or self-care (01) ==
LOC: HO.WFDLDS 12:32
PROVIDERS: Visit Provider Family Medicine
DX: Z00.00 Encounter for general adult medical examination without abnormal findings (principal); I10 Essential (primary) hypertension
CPT/HCPCS: 36415; 80053; 80061; 81003; 82043; 82570; 84443; 85025

== ENCOUNTER 2024-07-24 08:27 | Emergency (ER) | payer OTHER, SELFPAY ==
--- NOTE | ~2024-07-24 | XR_ITS ---
EXAMINATION: XR LUMBOSACRAL SPINE CLINICAL INFORMATION: lower left back pain COMPARISON: None available. TECHNIQUE: Three views of the lumbosacral spine. FINDINGS: Minimal levoconvex scoliosis. The vertebral bodies and posterior elements are intact. The disc spaces are preserved and the vertebral alignment is normal. Facets are normally aligned. The paraspinal soft tissues are normal. XR/XR lumbar spine 2-3V IMPRESSION: Essentially normal lumbar spine radiographs. Electronically signed by: Sung Hodge MD 07/24/2024 11:01 AM EDT
[2024-07-24 08:29] VITALS: BP 150/85; PULSE 79; RESP 16; TEMP 36.9; O2SAT 100; BMI 36.8
[2024-07-24 08:46] VITALS: BP 137/85; PULSE 103; RESP 15; TEMP 36.7; O2SAT 99
--- OUTSIDE RECORDS SUMMARY | 2024-07-24 09:16 | XMS_ITS | Clinical Summary ---
Author Organization [facility] ity Address [address] [place] [address] Care Team Providers Care Supervisor Throwing Department Name Role Phone Unavailable Primary Care Provider [...] 06/08/2011 COVID-19 Vaccine (2023-2 5 season) 2023 Depression Screening 01/02/2024 HIV Screening 01/02/2024 Hepatitis C Screening 01/02/2024 Social Influencers of Health Screening 01/02/2024 Influenza Vaccine (Season Ended) 2024 HIB Vaccines Aged Out No longer eligi [...]
--- OUTSIDE RECORDS SUMMARY | 2024-07-24 09:16 | XMS_ITS | Clinical Summary ---
Author Organization [facility] Address [address] [place] [address] Care Team Providers Care Design Draftsman Name Role Phone Unavailable Primary Care Provider Unavailabl e Allergies No known active allergies Medications ibuprofen (MOTRIN) 800 mg tablet Take 1 [...] at Not on file Legal Sex Male 8:03 PM EDT Gender Identity Not on file Sexual [...] on patient's age to complete this topic Insurance [facility] [place] (AUTO/LIABILITY)
--- OUTSIDE RECORDS SUMMARY | 2024-07-24 09:16 | XMS_ITS | Clinical Summary ---
Author Organization [facility] Address [address] [place] [address] Care Team Providers Care Channel Worker Name Role Phone Emeli Yang SARA Primary Care Provider [phone] Source Comments PLEASE NOTE, if this patient [...] (10/03/2015): PPD+(20mm) in 12/2013. Was seen at [facility] TB clinic. TB spot was neg. No [...] SAFETY NET SAFETY NET DENTAL Care Teams Channel Worker Relationship Specialty Start Date End Date Emeli Yang NP [address] [place] [address] PCP - General Internal Medicine 06/19/14
--- NOTE | 2024-07-24 09:40 | ED_ITS ---
HPI - General Adult General Chief complaint: Skin/Abscess/Foreign Body Stated complaint: lump on back lower left side Time Seen by Provider: 07/24/24 09:15 Source: patient Mode of arrival: ambulatory Limitations: no limitations History of Present Illness ED Provider: JAZMÍN RUSSELL PA-C HPI narrative: 34 year old male with pmhx of GERD, IBS presents to the ED today for evaluation of lump to lower back x2 years. Patient reports an intermittent aching sensation that is worse with sitting. He denies any clear inciting injury or moment when the symptoms started but does report that he used to shadow box which might have caused him to strain his back. He reports that he can deal with the pain but wants to rule out anything serious. Denies hx of similar. Denies hx of IVDU. Denies hx of spinal surgery. Denies fever, chills, headache, vision changes, nausea or vomiting, flank pain, urinary symptoms, saddle anesthesia, bowel or bladder incontinence or retention, numbness/tingling/weakness of the lower extremities. Related Data Home Medications ?Medication ?Instructions ?Recorded ?Confirmed No Known Home Meds 07/02/24 07/30/24 Allergies Allergy/AdvReac Type Severity Reaction Status Date / Time No Known Allergies Allergy Verified 07/30/24 09:27 Review of Systems 2 Review of Systems: Yes all other systems are reviewed and are negative PMFSH Past Medical History Attestation statement: The following information was validated with the patient. Source: old records reviewed and nursing notes reviewed Medical History Sleep disorder, unspecified IBS (irritable bowel syndrome) GERD (gastroesophageal reflux disease) History of COVID-19 Anxiety Surgical History Hx of colonoscopy H/O skin graft Family History Family History Mother HTN (hypertension) Father No problems noted. 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 Afebrile. General: Well appearing, in no acute distress. Skin: Warm, dry, intact. No rashes or lesions. Head: Normocephalic, atraumatic. EENT: Hearing is intact b/l. Conjunctiva clear. Sclera is anicteric. Neck: Supple without LAD. Cardiac: Chest wall symmetric. RRR. Lungs: Normal respiratory effort without accessory muscle use. CTA bilaterally. Abdomen: Soft, non-tender, non-distended. No rebound tenderness or guarding. Positive BS x4. Back: No midline spinous or paraspinal tenderness. No step off deformity. No palpable mass to lower back. no overlying skin changes. Ext: Upper and lower extremities atraumatic, without tenderness, deformity, swelling or erythema. Full ROM throughout. Strength 5/5 throughout. Neuro: AOx3. Normal speech. Sensation intact to light touch. NV intact distally. Ambulating with steady gait. Course Course Course Narrative: CBC without leukocytosis or left shift. No anemia. H&H stable. Chemistry without acute electrolyte abnormality requiring intervention. No LETI. Liver function around baseline. xray lumbar spine unremarkable. given benign exam and unremarkable work up - advised to f/u with PCP. treated w/ toradol in ED. no complaints at present. Patient has remained stable throughout ED visit today. Discussed worrisome signs and symptoms and when to return to the ED. All questions answered at this time. Patient is agreeable with disposition and stable for discharge. Medical Decision Making Medical Decision Making [facility] Narrative: 34 year old male with pmhx of GERD, IBS presents to the ED today for evaluation of lump to lower back x2 years. Afebrile. Mildly tachycardic to 103 bpm. Hypertensive to 150/85. Patient in no acute distress, well-appearing. On exam, there is no midline spinous tenderness or tenderness to palpation. No step-off deformities. no palpable mass. no overlying skin changes. Sensation intact to lower extremities, 5/5 strength in bilateral lower extremities. ambulating with steady gait. Differential diagnosis consists of lumbago, disc herniation, lumbar fracture, muscle sprain/strain, pilonidal cyst, lipoma Unlikely cord compression, Guillain-Richmond, epidural abscess, cauda equina. Plan for labs, lumbar xrs Differential Diagnosis Differential Diagnoses: The differential diagnosis associated with the presentation includes as above Admission/Observation not indicated Lab Data MDM Lab Attestation statement: I reviewed the patient's lab results. as above 07/24/24 11:12 07/24/24 11:12 Labs: Lab Results 07/24/24 Range/Units 11:12 WBC 5.9 (4.8-10.8) X10*3/uL RBC 5.40 (4.60-5.80) X10*6/uL Hgb 15.9 (14.0-18.0) g/dl Hct 46.5 (42.0-52.0) % MCV 86.1 (80.0-98.0) fL MCH 29.4 (27.0-33.0) pg MCHC 34.2 (31.0-36.0) g/dl RDW 14.1 (11.0-16.0) % Plt Count 349 (160-400) X10*3/uL MPV 9.2 L (9.4-12.4) fL Immature Gran % (Auto) 0.3 (0.0-0.4) % Neut % (Auto) 72.2 (45-73) % Lymph % (Auto) 19.4 L (20-40) % Lumpkin % (Auto) 7.6 (2-11) % Eos % (Auto) 0.2 (0-4) % Baso % (Auto) 0.3 (0-2) % Lymph # (Auto) 1.2 (1.2-4.9) X10*3/uL Lumpkin # (Auto) 0.5 (0.1-1.2) X10*3/uL Eos # (Auto) 0.0 (0.0-0.4) X10*3/uL Baso # (Auto) 0.0 (0.0-0.2) X10*3/uL Abs Immat Gran (auto) 0.02 (0.00-0.03) X10*3/uL Absolute Neuts (auto) 4.3 (2.0-8.3) x10*3/uL Absolute Nucleated RBC 0.000 (0.0-0.012) X10*3/uL Nucleated RBC % (auto) 0.0 (0.0-0.2) /100WBC Sodium 142 (135-145) mmol/L Potassium 4.0 (3.3-5.1) mmol/L Chloride 107 (96-108) mmol/L Carbon Dioxide 26 (22-29) mmol/L Anion Gap 13 (12-20) BUN 6 L (9-16) mg/dL Creatinine 0.86 (0.5-1.4) mg/dL Estim Creat Clear Calc 152.7 Estimated GFR > 60 Random Glucose 98 (60-115) mg/dL Calcium 9.6 (8.4-10.2) mg/dL Magnesium 2.0 (1.6-2.6) mg/dL Total Bilirubin 0.9 (0.0-1.0) mg/dL AST 38 H (5-37) U/L ALT 33 (0-40) U/L Alkaline Phosphatase 124 H (39-117) U/L Total Protein 8.4 H (6.5-8.0) g/dL Albumin 4.5 (3.5-5.0) g/dL Independent Interpretation I performed an independent interpretation of an: Plain X-Ray Interpretation: xr lumbar spine without fracture Radiology Impression Discussion of test interpretation with radiology: I have reviewed the radiologist's reading. Radiologist Impression: Ordering Physician: Jazmín Russell Date of Service: 07/24/24 Procedure(s): XR lumbar spine 2-3V Accession Number(s): [id number] cc: Matthew Casiano MD; Jazmín Russell~ EXAMINATION: XR LUMBOSACRAL SPINE CLINICAL INFORMATION: lower left back pain COMPARISON: None available. TECHNIQUE: Three views of the lumbosacral spine. FINDINGS: Minimal levoconvex scoliosis. The vertebral bodies and posterior elements are intact. The disc spaces are preserved and the vertebral alignment is normal. Facets are normally aligned. The paraspinal soft tissues are normal. XR/XR lumbar spine 2-3V IMPRESSION: Essentially normal lumbar spine radiographs. Electronically signed by: Sung Hodge MD 07/24/2024 11:01 AM EDT External Record Review External record reviewed: Inpatient record Prescription Management I considered prescription management with: Pain Medication Social Determinants Patient?s care significantly limited by Social Determinants of Health including: Other Social Determinant of Health Critical Care Time Critical Care Time Critical Care Time: No Discharge Plan Discharge Clinical Impression: Back pain Patient Disposition: Home, Self-Care Instructions: Back Pain (ED), Heat Pack Application (ED) Additional Instructions: Your workup today is reassuring including blood work, urine and x-ray of your spine. I recommend you take Tylenol and Motrin as needed at home for pain or discomfort. Follow up with your outpatient providers. Return with new or worsening symptoms. In the case of an emergency call 911. Prescriptions: No Action No Known Home Meds Referrals: Matthew Casiano MD [Primary Care Provider] - Interventions: ED Discharge Assessment Last Done: 07/24/24 12:16 Discharge Date/Time: 07/24/24 12:19 Print Language: Lithuanian
[2024-07-24 11:18] LABS: MANUAL DIFF FLAG NO
[2024-07-24 11:21] LABS: Basophils Percent Auto 0.3 % (0-2); Eosinophils Percent Auto 0.2 % (0-4); Hematocrit 46.5 % (42.0-52.0); Hemoglobin 15.9 g/dl (14.0-18.0); Imm Gran Abs Auto 0.02 X10*3/uL (0.00-0.03); Imm Gran Pct Auto 0.3 % (0.0-0.4); Lymphocytes Absolute Auto 1.2 X10*3/uL (1.2-4.9); Lymphocytes Percent Auto 19.4 % (20-40); Mean Corpuscular HGB Conc 34.2 g/dl (31.0-36.0); Mean Corpuscular Hemoglobin 29.4 pg (27.0-33.0); Mean Corpuscular Volume 86.1 fL (80.0-98.0); Mean Platelet Volume 9.2 fL (9.4-12.4); Monocytes Absolute Auto 0.5 X10*3/uL (0.1-1.2); Monocytes Percent Auto 7.6 % (2-11); Neutrophils Absolute Auto 4.3 x10*3/uL (2.0-8.3); Neutrophils Percent Auto 72.2 % (45-73); Platelet Count 349 X10*3/uL (160-400); Red Cell Distribution Width 14.1 % (11.0-16.0); White Blood Count 5.9 X10*3/uL (4.8-10.8)
[2024-07-24 11:39] LABS: Alanine Aminotransferase 33 U/L (0-40); Albumin Level 4.5 g/dL (3.5-5.0); Alkaline Phosphatase 124 U/L (39-117); Anion Gap 13 (12-20); Aspartate Amino Transferase 38 U/L (5-37); Bilirubin Total 0.9 mg/dL (0.0-1.0); Blood Urea Nitrogen 6 mg/dL (9-16); Calcium 9.6 mg/dL (8.4-10.2); Carbon Dioxide 26 mmol/L (22-29); Chloride 107 mmol/L (96-108); Creatinine Clr Calc Pharmacy 152.7; Estimated Glomerular Filt Rate > 60; Glucose Random 98 mg/dL (60-115); Sodium 142 mmol/L (135-145); Total Protein 8.4 g/dL (6.5-8.0)
[2024-07-24 12:16] VITALS: BP 137/85; PULSE 103; RESP 15; TEMP 36.7; O2SAT 99
== END 2024-07-24 12:19 | disposition home or self-care (01) ==
PROVIDERS: Physician Assistant Medical; Emergency Provider Emergency Medicine; PCP Family Medicine
DX: M54.50 Low back pain, unspecified (principal); R00.0 Tachycardia, unspecified; I10 Essential (primary) hypertension; Z79.899 Other long term (current) drug therapy
CPT/HCPCS: 36415; 72100; 80053; 83735; 85025; 99283

== ENCOUNTER → 2024-07-24 09:39 | Outpatient (BNV) | payer OTHER, SELFPAY | PROVIDERS: Emergency Provider Emergency Medicine; PCP Family Medicine; Visit Provider Radiology Diagnostic Radiology | DX: M54.50 Low back pain, unspecified (principal) | CPT/HCPCS: 72100 ==

== ENCOUNTER 2024-07-30 09:28 | Outpatient (AMB) | payer OTHER, SELFPAY ==
--- NOTE | 2024-07-30 09:26 | A.OFFPC_ITS ---
Intake Visit Reasons: f/u CPE-labs via telemedicine Allergies No Known Allergies Allergy (Verified 07/30/24 09:27) Medication List - Last Reconciled 07/30/24 by Matthew Casiano MD No Known Home Meds Tobacco use date assessed: 08/31/21 Dental Screening Dental Screen Date: 07/02/24 HPI f/u CPE-labs via telemedicine 2 HPI Details 34 y/o male presents to f/u labs via tel emedicine. Labs drawn 07/24/24. Reviewed labs with pt. Elevated AST of 38. ALT 33. Triglycerides 100. TC 137. LDL 72. HDL 45. Pt notes he has a mass on his lower L back that he would like a work up on. HPI Comments History of Present Illness Details Documentation assistance for Matthew Casiano MD, was provided by Bob Childress,? Retail Office Associate on 07/30/2024 at 9:42 AM EST. I, Dr. Casiano, have read, observed, and verified documentation. ? PFSH Medical History Sleep disorder, unspecified IBS (irritable bowel syndrome) GERD (gastroesophageal reflux disease) History of COVID-19 Anxiety Surgical History Hx of colonoscopy H/O skin graft Family History Mother HTN (hypertension) Father No problems noted. 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 Cognitive needs: No Hearing needs: No Vision needs: Yes (glasses) Questionnaire Thrive Questionnaire Date Thrive assessed: 07/02/24 I am a: Patient What is your living situation today?: I have a steady place to live Within the past 12 months, did the food you bought not last and you didn't have the money to get more?: Never true Within the past 12 months, did you worry whether your food would run out before you got money to buy more?: Never true Do you have trouble paying for medicines?: I choose not to answer this question Do you have trouble getting transportation to medical appointments?: No Do you have trouble paying your heating and electricity bill?: I choose not to answer this question Do you have trouble taking care of your child, family member or friend?: No Do you have trouble with day-to-day activities such as bathing, preparing meals, shopping, managing finances, etc.?: No Are you currently unemployed and looking for a job?: No Are you interested in more education?: No Please select the resources that you would like help with: None Currently or been in a relationship where the following occur: No concerns reported THRIVE Score: 0 NATHEN-7 AMB Questionnaire NATHEN-7 Date NATHEN - 7 assessed: 07/02/24 Source: Developed by Drs. Luis Laura, Lynette Jade, Jake Germain and colleagues, with an educational kirit from [employer] Review of Systems Const Denies chills, Denies fatigue, Denies fever(s), Denies headache(s) and Denies weakness ENT Denies dizziness and Denies headache(s) Card Denies dyspnea Resp Denies cough, Denies dyspnea, Denies wheezing and Denies other (shortness of breath) Musc Denies numbness and Denies tingling Neuro Denies dizziness, Denies headache(s), Denies numbness, Denies tingling and Denies weakness Psych Denies anxiety and Denies depression Endo Denies fatigue Aller/Immun Denies wheezing Physical exam (Primary Care) Tobacco/Smoking Status: Tobacco use Status Tobacco use date assessed 08/31/21 07/30/24 09:27 Patient Tobacco Use Status Never used Tobacco 07/30/24 09:27 e-Cigarette/Vaping Use Never Used 07/30/24 09:27 Thrive Assessment: Date of Thrive Assessment Date Thrive assessed 07/02/24 07/30/24 09:27 Currently or been in a relationship where the following occur: No concerns reported Telehealth Telehealth Telehealth Platform: Telephone Location of provider rendering services: practice address Location of patient: address on file Patient Identification confirmed using: Name, : Yes Telehealth method: voice only Patient verbally consented to treatment: Yes Patient verbally consented to billing insurance company: Yes Patient informed of any privacy concerns related to visit: Yes Minutes spent on Phone/Video with Pt.: 8 Coding Level of Care Code Tele Est Pt Level 2 (06717) Diagnoses Elevated AST (SGOT) R74.01 Mass on back R22.2 Assessment & Plan Assessment & Plan (1) Elevated AST (SGOT): Code(s): R74.01 - Elevation of levels of liver transaminase levels Category: Medical Plan: Mildly?elevated?AST?when?patient?went?to?the?emergency?department?will?not?feeli ng?well. Was?Check?only?recently?before?this?and?was?within?range. Hydrate?well We?can?recheck?this?with?next?blood?draw (2) Mass on back: Code(s): R22.2 - Localized swelling, mass and lump, trunk Category: Medical Plan: Ongoing?concerns?by?patient?for?mass?on?back Had?been?to?the?ED?and?x-ray?did?not?show?any?problems. Will?check?an?ultrasound Orders: Orders US abdomen limited Today R22.2 - Localized swelling, mass and lump, trunk
--- OUTSIDE RECORDS SUMMARY | 2024-07-30 10:13 | XMS_ITS | Clinical Summary ---
Author Organization [facility] Address [address] [place] [address] Care Team Providers Care Metal Fabricating Shop Helper Name Role Phone Emeli Yang SARA Primary Care Provider [phone] Source Comments PLEASE NOTE, if this patient [...] (10/03/2015): PPD+(20mm) in 12/2013. Was seen at [facility] TB clinic. TB spot was neg. No [...] SAFETY NET SAFETY NET DENTAL Care Teams Metal Fabricating Shop Helper Relationship Specialty Start Date End Date Emeli Yang NP [address] [place] [address] PCP - General Internal Medicine 06/19/14
--- OUTSIDE RECORDS SUMMARY | 2024-07-30 10:13 | XMS_ITS | Clinical Summary ---
Author Organization [facility] ity Address [address] [place] [address] Care Team Providers Care Centrifugal Station Operator Name Role Phone Unavailable Primary Care Provider [...]
--- OUTSIDE RECORDS SUMMARY | 2024-07-30 10:13 | XMS_ITS | Clinical Summary ---
Author Organization [facility] Address [address] [place] [address] Care Team Providers Care Director Teen Post Name Role Phone Unavailable Primary Care Provider [...] - 19+ 3-dose series) 06/08/2011 COVID-19 Vaccine (1 - 2023-2 5 season) 2023 Influenza Vaccine 10/24/2024 HPV Vaccines Aged Out No longer eligi ble based on patient's age to complete this topic Pneumococcal Vaccine: Pediat aydee (0-5 Years) and At-Risk Patients (6 to 49 Years) Aged Out No longer eligible b ased on patient's age to complete this topic Insurance [facility] TPL (AUTO/LIABILITY)
== END 2024-07-30 17:05 | disposition home or self-care (01) ==
LOC: HO.HMCFM 09:28
PROVIDERS: PCP Family Medicine; Visit Provider Family Medicine
DX: R74.01 Elevation of levels of liver transaminase levels (principal); R22.2 Localized swelling, mass and lump, trunk

== ENCOUNTER → 2024-07-30 09:28 | Outpatient (BNVA) | payer OTHER, SELFPAY | PROVIDERS: PCP Family Medicine; Visit Provider Family Medicine | DX: Z13.89 Encounter for screening for other disorder (principal) ==

== ENCOUNTER 2024-09-10 10:01 | Outpatient (REF) | payer OTHER, SELFPAY ==
--- NOTE | ~2024-09-10 | US_ITS ---
EXAMINATION: US ABDOMEN LIMITED CLINICAL INFORMATION: Swelling, mass, lump on the trunk. COMPARISON: None available. TECHNIQUE: Real-time imaging of the right upper quadrant abdominal viscera. FINDINGS: Limited ultrasound imaging through left lower back/popliteal area reveals solid mass measuring 20.2 x 1.2 x 5.1 cm. It is isoechoic to fat without and extends deeper into the muscle suspicious .increased vascularity or internal herniation. No increased vascularity seen. The neck is approximately 1.4 cm and nonreducible. US/US abdomen limited IMPRESSION: Suspect intramuscular nonreducible hernia. Electronically signed by: Seven Bowden MD 09/12/2024 08:48 AM EDT
--- OUTSIDE RECORDS SUMMARY | 2024-09-10 11:14 | XMS_ITS | Clinical Summary ---
Author Organization [facility] Address [address] [place] [address] Care Team Providers Care Shipping Associate Name Role Phone Unavailable Primary Care Provider [...] 101 06/09/2019 8:12 PM EDT Temperature 36.5 C (97.7 F) 06/09/2019 8:12 PM EDT Respiratory Rate 18 06/09/2019 8:12 PM EDT [...] patient's age to complete this topic [place] [facility] [place]
== END 2024-09-10 10:02 | disposition home or self-care (01) ==
LOC: HO.HMGCX 10:01
PROVIDERS: PCP Family Medicine; Visit Provider Family Medicine
DX: R22.2 Localized swelling, mass and lump, trunk (principal)
CPT/HCPCS: 76705

== ENCOUNTER → 2024-09-10 10:03 | Outpatient (BNV) | payer OTHER, SELFPAY | PROVIDERS: PCP Family Medicine; Visit Provider Radiology Diagnostic Radiology | DX: R22.2 Localized swelling, mass and lump, trunk (principal) | CPT/HCPCS: 76705 ==

== ENCOUNTER 2024-11-05 09:06 | Outpatient (AMB) | payer OTHER, SELFPAY ==
--- NOTE | 2024-11-05 09:10 | MHC.OFFVIS ---
Vital Signs 11/05/24 09:16 Height 5 ft 9 in Weight 242 lb BMI 35.7 BP 151/85 H Blood Pressure Location Rt brachial Position Sitting Pulse 74 Intake Visit Reasons: swelling/mass/lump trunk Intake Note: Patient referred by pcp Dr. Casiano for assessment of non reducible hernia on back. Patient c/o: occasional discomfort on lower back. Abdomen US: 09-10-2024 Assistant Service Manager Required: No Accompanied by: Self / Same As Patient Allergies No Known Allergies Allergy (Verified 11/05/24 09:15) Medication List - Last Reconciled 11/05/24 by Kingsley Rodas MD No Known Home Meds HPI HPI swelling/mass/lump trunk: Details: 34-year-old male referred for a lump on his back. He says he feels to vague lumps on his lower back. He says that time this are not very obvious. He says he has had this for ?quite a while?. Denies any significant increased in size. He denies any skin changes. He denies any pain or tenderness. He does admit to having anxiety. [facility] Medical History Subcutaneous mass of back Sleep disorder, unspecified IBS (irritable bowel syndrome) GERD (gastroesophageal reflux disease) History of COVID-19 Anxiety Surgical History Hx of colonoscopy H/O skin graft Family History Mother HTN (hypertension) Father No problems noted. 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 Cognitive needs: No Hearing needs: No Vision needs: Yes (glasses) Review of Systems Const Denies chills and Denies fever(s) Card Denies chest pain, Denies dyspnea and Denies dyspnea on exertion Resp Denies cough, Denies dyspnea and Denies dyspnea on exertion GI Denies hematochezia and Denies change in bowel habits Denies hematuria and Denies difficulty urinating Musc Denies back pain and Denies limited range of motion Neuro Denies focal weakness and Denies convulsions Psych Denies depression and Denies mood swings Physical Exam Const Other: Obese General: comfortable and no acute distress Orientation/consciousness: patient oriented x3 Neck Neck: Yes no lymphadenopathy Resp Auscultation: clear to auscultation bilaterally Cardio Rhythm: regular rhythm GI Palpation (GI): Soft to palpation, nontender and no guarding Back/Spine/Pelvis Other: Vague, palpable mass on the left lower back lumbar area, nontender, no skin changes Neuro General: patient oriented x3 Assessment & Plan Assessment & Plan (1) Subcutaneous mass of back: Code(s): R22.2 - Localized swelling, mass and lump, trunk Category: Medical Plan He has a vague mass in the lower back as described above. His ultrasound shows that it may be fat containing hernia of the back. I told him that I am going to schedule him for a CAT scan of the abdomen to visualize this. I will see him again in the office thereafter to review the findings He seemed to understand the plan well. I assured him that this is not a malignant neoplasm which he was concerned of. Orders: Orders CT abdomen pelvis wo IV con Today R22.2 - Localized swelling, mass and lump, trunk Coding Level of Care Code New Pt Level 3 (78781) Diagnoses Subcutaneous mass of back R22.2
[2024-11-05 09:16] VITALS: BP 151/85; PULSE 74; BMI 35.7
--- OUTSIDE RECORDS SUMMARY | 2024-11-05 09:30 | XMS_ITS | Clinical Summary ---
Author Organization [facility] ity Address [address] [place] [address] Care Team Providers Care Sand Digger Name Role Phone Unavailable Primary Care Provider [...] 06/08/2011 COVID-19 Vaccine (2023-2 5 season) 2023 HIV Screening 01/02/2024 Hepatitis C Screening 01/02/2024 Social Influencers of Health Screening 01/02/2024 Depression Screening 03/26/2024 Influenza Vaccine (#1) 2024 HIB Vaccines Aged Out No longer [...] 5 Years) and At-Risk Patients (6 to 49 [...]
--- OUTSIDE RECORDS SUMMARY | 2024-11-05 09:30 | XMS_ITS | Clinical Summary ---
Author Organization [facility] Address [address] [place] [address] Care Team Providers Care Lip Cutter And Scorer Name Role Phone Emeli Yang SARA Primary Care Provider [phone] Source Comments PLEASE NOTE, if this patient [...] (10/03/2015): PPD+(20mm) in 12/2013. Was seen at [facility] TB clinic. TB spot was neg. No [...] 82 06/19/2014 2:12 PM EDT Temperature 36.4 C (97.5 F) 06/19/2014 2:12 PM EDT Respiratory Rate 16 06/19/2014 2:12 PM EDT Oxygen Saturation - - Inhaled Oxygen Concentration - - Weight 97.1 kg (214 lb) 06/19/2014 2:12 PM EDT Height 172.7 cm (5' 8 ) 06/19/2014 2:12 PM EDT Body Mass Index 32.54 06/19/2014 2:12 PM EDT Plan of Treatment Not on file Insurance [employer] S[employer] NET D[employer]AL Care Teams Lip Cutter And Scorer Relationship Specialty Start Date End Date Emeli Yang NP [address] [place] [address] PCP - General Internal Medicine 06/19/14
--- OUTSIDE RECORDS SUMMARY | 2024-11-05 09:30 | XMS_ITS | Clinical Summary ---
Author Organization [facility] Address [address] [place] [address] Care Team Providers Care Tax Collection Coordinator Name Role Phone Unavailable Primary Care Provider [...] of 3 - 19+ 3-dose series) 06/08/2011 HPV Vaccines (1 - 3-dose SCD M series) 06/08/2019 COVID-19 Vaccine (1 - 2023-2 5 season) 2023 Influenza Vaccine 10/24/2024 Pneumococcal Vaccine: Pediat aydee (0-5 Years) and At-Risk Patients (6 to 49 Years) Aged Out No longer eligible b ased on patient's age to complete this topic Insurance [facility] T[facility] (AUTO/LIABILITY)
== END 2024-11-05 09:30 | disposition home or self-care (01) ==
LOC: HO.HGS 09:07
PROVIDERS: PCP Family Medicine; Visit Provider Surgery
DX: R22.2 Localized swelling, mass and lump, trunk (principal)
CPT/HCPCS: 99203

== ENCOUNTER 2025-02-25 12:43 | Outpatient (AMB) | payer OTHER, SELFPAY ==
[2025-02-25 12:52] VITALS: BP 126/68; PULSE 102; TEMP 37.3; O2SAT 97; BMI 36.5
--- NOTE | 2025-02-25 12:52 | AM.OFFWIN_ITS ---
Intake Vital Signs 02/25/25 12:52 Height 5 ft 9 in Weight 112.037 kg BMI 36.5 BP 126/68 Blood Pressure Location Lt brachial Position Sitting Pulse 102 H Pulse Source Pulse Oximeter Temp 99.1 F Temp Source Oral Pulse Oximetry (%) 97 Oxygen Delivery Method Room Air Intake Visit Reasons: EP Left hip pain Intake Note: pt presents with LT hip pain and limping for 3 weeks- denies injury Patient Tobacco Use Status: Never used Tobacco Allergies No Known Allergies Allergy (Verified 02/25/25 12:57) Do you need a note to return to daycare/school/sports/work: No HPI HPI Comments History of Present Illness Details Chief Complaint: ?Pain in my right hip / glute that makes me limp.? History of Present Illness: The patient reports approximately four weeks of right posterior-lateral hip/gluteal pain atraumatic. Pain causes limping. Pain is worst while walking and when first rising after sitting; standing or sitting is generally comfortable. Localized near the femoral head/greater trochanter area. Pain is exacerbated by hip rotation and by actively lifting the right leg; one 24-hour period of complete symptom resolution occurred during the 4-week course, after which the pain returned. Denies trauma or falls. No associated numbness, tingling, or weakness. Able to bend forward and touch toes without pain; no significant back pain except occasional mild soreness ?once in a while.? No urinary or fecal incontinence. Denies visible bruising The presentation and exam are most consistent with an inflammatory process of the right hip region, likely trochanteric bursitis or gluteal tendonitis. No red-flag findings or history of trauma to suggest fracture; imaging deferred at this time. Problem #1: Right hip pain ? likely bursitis/tendonitis Assessment: Four-week history, localized over greater trochanter, pain with rotation/leg raise, normal strength, no trauma. Inflammatory etiology suspected. Plan: * Prednisone course: 5 days as prescribed. * Begin meloxicam 15 mg nightly for 2 weeks starting after completion of prednisone. * If no improvement or worsening symptoms, obtain right hip radiograph and re- evaluate. Differentials * Trochanteric bursitis: Most likely given pain localized to the lateral hip, exacerbated by movement, and absence of trauma. * Gluteal tendonitis: Also likely due to pain with active leg raise and hip rotation, and location near greater trochanter. * Hip osteoarthritis: Less likely in this age group, but considered due to chronicity and joint involvement. * Lumbar radiculopathy: Considered due to occasional mild back soreness, but absence of numbness, tingling, or weakness makes this less likely. * Hip labral tear: Possible given pain with rotation, though no history of trauma or mechanical symptoms. * Referred pain from lumbar spine: Mild back soreness reported, but pain is primarily localized to hip/gluteal region. * Avascular necrosis: Unlikely without risk factors or systemic symptoms, but considered due to persistent pain. * Stress fracture: Less likely given no trauma, normal strength, and absence of focal tenderness or swelling. * Infectious or inflammatory arthritis: Less likely due to lack of systemic symptoms (fever, malaise) and normal exam findings. [facility] Medical History Subcutaneous mass of back Sleep disorder, unspecified IBS (irritable bowel syndrome) GERD (gastroesophageal reflux disease) History of COVID-19 Anxiety Surgical History Hx of colonoscopy H/O skin graft Family History Mother HTN (hypertension) Father No problems noted. 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 * Neurologic: Denies numbness or tingling. * Integumentary: Denies bruising. * Genitourinary/GI: Continence intact. * All other systems not discussed. Const All systems reviewed & are unremarkable except as noted in HPI and below Physical Exam Exam Exam: * General: Ambulates with mild antalgic gait. * Musculoskeletal: Right hip ? full flexion/extension without pain; pain reproduced with internal/external rotation. Strength 5/5 bilaterally. No visible ecchymosis. Negative straight leg raise and fabers b/l. * Neurologic: Denies numbness or tingling. No saddle anesthesias. * VSS * CV/Resp: no cardiopulmonary distress Vital Signs: Last Vital Signs Temp 99.1 F 02/25/25 12:52 Pulse 102 H 02/25/25 12:52 BP 126/68 02/25/25 12:52 Pulse Ox 97 02/25/25 12:52 Oxygen Delivery Method Room Air 02/25/25 12:52 BMI result Body Mass Index 36.5 vss Assessment & Plan Assessment & Plan (1) Bursitis: Code(s): M71.9 - Bursopathy, unspecified Plan Take your medications as prescribed. If you were prescribed antibiotics today, it is important that you take your medication to their entirety, do not skip any doses, do not finish them early. Follow-up with your primary care provider this week. Return to the emergency department with new or worsening symptoms. In case of emergency call 911 Medications: New prednisone 40 mg (2 x 20 mg) PO DAILY 10 tabs 0RF 5 days meloxicam 15 mg PO DAILY 30 tabs 0RF pain Coding Level of Care Code Est Pt Level 3 (22070) Diagnoses Bursitis M71.9
--- OUTSIDE RECORDS SUMMARY | 2025-02-25 14:56 | XMS_ITS | Clinical Summary ---
Author Organization [facility] ity Address [address] [place] [address] Care Team Providers Care Plumbing Warehouse Helper Name Role Phone Unavailable Primary Care Provider [...] (1 - 3-dose SCD M series) 06/08/2019 HIV Screening 01/02/2024 Hepatitis C Screening 01/02/2024 Social Influencers of Health Screening 01/02/2024 Depression Screening 03/26/2024 COVID-19 Vaccine (1 - 2024-2 6 season) 2024 Influenza Vaccine (#1) 2024 RSV Immunization Adult Patie nts (1 - 1-dose 75+ series) 06/08/2067 HIB Vaccines Aged Out No longer eligi [...]
--- OUTSIDE RECORDS SUMMARY | 2025-02-25 14:56 | XMS_ITS | Clinical Summary ---
Author Organization [facility] Address [address] [place] [address] Care Team Providers Care Lease Out Worker Name Role Phone Unavailable Primary Care Provider [...] - 19+ 3-dose series) 06/08/2011 Influenza Vaccine 10/24/2024 COVID-19 Vaccine (1 - 2023-2 5 season) 2024 HPV Vaccines (No Doses Required) Completed Pneumococcal Vaccine: Pediat aydee (0-5 Years) and At-Risk Patients (6 to 49 Years) Aged Out No longer eligible b ased on patient's age to complete this topic Insurance [facility] T[facility] (AUTO/LIABILITY)
== END 2025-02-25 13:42 | disposition home or self-care (01) ==
PROVIDERS: PCP Family Medicine; Visit Provider Physician Assistant
DX: M71.9 Bursopathy, unspecified (principal)

== ENCOUNTER 2025-03-13 15:58 | Outpatient (REF) | payer OTHER, SELFPAY ==
--- NOTE | ~2025-03-13 | CT_ITS ---
EXAMINATION: CT ABDOMEN PELVIS WITHOUT IV CONTRAST HISTORY: R22.2 - Localized swelling, mass and lump, trunk COMPARISON: There are no prior studies available for comparison. TECHNIQUE: CT scan of the abdomen and pelvis was performed without contrast using standard departmental protocol. Coronal and sagittal reformatted images were generated and reviewed. Oral contrast material was not administered at the request of the referring physician. This CT exam was performed with one or more of the following dose reduction techniques: automated exposure control, adjustment of the mA and/or kV according to patient size, use of iterative reconstruction technique. DLP: 797 mGy-cm FINDINGS: LOWER CHEST: The visualized lung bases are clear. There is no pleural effusion. CARDIOVASCULATURE: The heart is normal in size. There is no pericardial effusion. LIVER: The liver is normal in size and contour. The liver has an unremarkable unenhanced appearance. GALLBLADDER / BILE DUCTS: The gallbladder is unremarkable. There is no intra or extrahepatic biliary ductal dilatation. SPLEEN: The spleen is normal in size and has an unremarkable unenhanced appearance. PANCREAS: The pancreas has an unremarkable unenhanced appearance. ADRENAL GLANDS: Unremarkable. KIDNEYS/RETROPERITONEUM: There is a punctate nonobstructing calculus at the lower pole of the left kidney. There is no hydronephrosis. There is a 1.3 cm hypodensity at the anterior aspect of the interpolar region of the left kidney which may represent a cyst. LYMPH NODES: No retroperitoneal lymphadenopathy is identified in the abdomen or pelvis. VASCULATURE: The abdominal aorta is normal in caliber. MESENTERY/PERITONEUM: No free fluid. No masses. There is no free intraperitoneal gas. STOMACH: The stomach is collapsed, limiting evaluation. SMALL BOWEL: The small bowel is normal in caliber. COLON: The colon is unremarkable. APPENDIX: Normal. URINARY BLADDER/PELVIC ORGANS: The urinary bladder is collapsed, limiting evaluation. The prostate is normal in size. BONES / SOFT TISSUES: No suspicious bony or soft tissue abnormalities. No abdominal wall mass or hernia is identified. CT/CT abdomen pelvis wo IV con IMPRESSION: 1. Punctate nonobstructing left renal calculus. Possible 1.3 cm left renal cyst. This could be confirmed with ultrasound. 2. No abdominal wall mass or hernia is identified. Electronically signed by: Luis Cisneros MD 03/16/2025 07:12 AM [place]
--- OUTSIDE RECORDS SUMMARY | 2025-03-13 16:44 | XMS_ITS | Clinical Summary ---
Author Organization [facility] Address [address] [place] [address] Care Team Providers Care Dial Painter Name Role Phone Unavailable Primary Care Provider [...] Influenza Vaccine 10/24/2024 COVID-19 Vaccine (1 - 2024-2 6 season) 2024 HPV Vaccines (No Doses Required) Completed Pneumococcal Vaccine: Pediat aydee (0-5 Years) and At-Risk Patients (6 to 49 Years) Aged Out No longer eligible b ased on patient's age to complete this topic Insurance [facility] TPL (AUTO/LIABILITY)
--- OUTSIDE RECORDS SUMMARY | 2025-03-13 16:44 | XMS_ITS | Clinical Summary ---
Author Organization [facility] ity Address [address] [place] [address] Care Team Providers Care Under Baster Name Role Phone Unavailable Primary Care Provider [...]
== END 2025-03-13 15:59 | disposition home or self-care (01) ==
LOC: HO.CT 15:58
PROVIDERS: PCP Family Medicine; Visit Provider Surgery
DX: R22.2 Localized swelling, mass and lump, trunk (principal)
CPT/HCPCS: 74176

== ENCOUNTER → 2025-03-13 16:00 | Outpatient (BNV) | payer OTHER, SELFPAY | PROVIDERS: PCP Family Medicine; Visit Provider Radiology Diagnostic Radiology | DX: N20.0 Calculus of kidney (principal) | CPT/HCPCS: 74176 ==